=== PATIENT | female | born 1985 | race Two or more races ===

== ENCOUNTER 2022-08-09 16:07 | Emergency (ER) | payer BC, SELFPAY ==
[2022-08-09 16:24] VITALS: BP 121/64; PULSE 127; RESP 18; TEMP 37.6; O2SAT 96; BMI 27.4
--- NOTE | 2022-08-09 16:47 | CRLHL7_ITS ---
For Patients: As a result of the Cures Act, medical imaging exams and procedure reports are released immediately into your electronic medical record. You may view this report before your referring provider. If you have questions, please contact your health care provider. RIGHT BREAST ULTRASOUND, 08/09/2022 CLINICAL HISTORY: RIGHT breast swelling. COMPARISON: None. TECHNIQUE: Real-time ultrasound imaging of RIGHT breast with imaging documentation. FINDINGS: Targeted sonogram to the periareolar RIGHT breast performed. Diffusely heterogeneous breast tissue noted with hypervascularity. [place] hypoechoic fluid collection is present within a distended duct. Indeterminate area of dense tissue just beneath the nipple. Other dilated ducts are present elsewhere. IMPRESSION: Diffuse cellulitis in the periareolar RIGHT breast with dilated ducts including a distended duct containing hypoechoic fluid measuring up to 8 mm. RECOMMENDATIONS: Clinical follow-up with antibiotic therapy. Diagnostic BILATERAL mammograms. BI-RADS Category 0: Incomplete: Need Additional Imaging Evaluation and/or Prior Mammograms for Comparison [facility] will contact the patient for follow-up. Dictated by Juan Rivera MD @ 08/10/2022 8:52:20 AM JR/Dictated by: Juan Rivera MD @ 08/10/2022 8:52:00 AM (Electronically Signed)
--- NOTE | 2022-08-09 16:48 | ED_ITS ---
HPI - General Adult General Chief complaint: Breast Symptoms Stated complaint: Chest Pain Time Seen by Provider: 08/09/22 16:43 History of Present Illness HPI narrative: Pt is a 37 year old woman with a history of pre-diabetes who presents with 2 days of pain and redness in her right breast. She is not to her knowledge and has had no breast issues in the past. Pt states that she may have had some low grade fevers and chills but no nausea, vomiting. No chest pain, SOB or cough. Pain is moderate and localized to the right breast. She is not breast feeding. Related Data Home Medications Medication Instructions Recorded Confirmed No Known Home Medications 08/09/22 08/09/22 Allergies Allergy/AdvReac Type Severity Reaction Status Date / Time No Known Drug Allergies Allergy Verified 08/09/22 16:28 Review of Systems Status of ROS: Reports: 10 or more systems reviewed and unremarkable except as noted in History and below [facility] Medical History (Updated 08/09/22 @ 21:03 by Nickolas Haskins MD) No significant past medical history Prediabetes Surgical History (Updated 08/09/22 @ 19:45 by Kayleen Chapa RN) No significant past surgical history Social History Smoking Status: Never smoker Do you use any of these nicotine containing products: None Second hand tobacco smoke exposure: No How often do you have a drink containing alcohol: never AUDIT-C Alcohol total score: 0 Non-prescribed substance use: denies use Exam Narrative: Exam Narrative: EXAM GENERAL: Patient appears comfortable and well. EYES: No scleral icterus. ENT: Tympanic membranes and oropharynx normal. THYROID: no thyroid nodules or thyromegaly. LYMPH: No supraclavicular or cervical lymphadenopathy. SKIN: Visible skin seen during exam normal or with benign process only. EXT: No dependent lower extremity pedal edema. HEART: Regular rate and rhythm with no murmurs, rubs, or gallops. LUNGS: Tachycardia noted Breast Exam on R shows diffuse redness with induration subareolar with extension superiorly ABD: Soft, non tender, non distended. PSYCH: Good eye contact, speech is not pressured. Const: Vital Signs, click to edit/add: Vital Signs - 24 hr 08/09/22 16:24 08/09/22 19:43 Temperature 99.7 F H 99.3 F Pulse Rate [Right Pulse Oximeter] 127 H 105 H Respiratory Rate 18 16 Blood Pressure [Ri ght Upper Arm] 121/64 112/73 Pulse Oximetry 96 98 Oxygen Delivery Me thod Room Air Course Course Hospital Course: Pt seen. Ultrasound of R breast ordered as is CBC, BC times 2, CRP, Lactate and serum Reevaluation(s) Reevaluation #1: Pt status unchanged. Pt pulse elevated at 127. NS given. 1000 mg tylenol given. Initial dose of Ancef given. Case reviewed with general surgery as there may be a mass deep to the aereola. No abscess. Surgeon recommends outpt Keflex per Uptodate and follow up with repeat ultrasound plus mammogram. Time: 19:10 Reevaluation #2: Results given via [place] interpretor Time: 19:23 Reevaluation #3: Pt pulse has come down after normal saline. I did consider sepsis as an eitiology of tachycardia. 1 gram Anef given. Lactate reassuring at 0.9. I did recommend admission to observation which pt declined. She would like to be treated with oral antibiotics and sent home. Time: 20:55 Consultations Consultation #1: General Surgery Vital Signs Vital signs: Initial Vital Signs Temperature 99.7 F H 08/09/22 16:24 Temperature Source Temporal Artery Scan 08/09/22 16:24 Pulse Rate 127 H 08/09/22 16:24 Respiratory Rate 18 08/09/22 16:24 Blood Pressure 121/64 08/09/22 16:24 Blood Pressure Mean 83 08/09/22 16:24 Blood Pressure Position Sitting 08/09/22 16:24 Pulse Oximetry 96 08/09/22 16:24 Oxygen Delivery Method 08/09/22 16:24 Vital Signs Temperature 99.7 F H 08/09/22 16:24 Pulse Rate 127 H 08/09/22 16:24 Respiratory Rate 18 08/09/22 16:24 Blood Pressure 121/64 08/09/22 16:24 Pulse Oximetry 96 08/09/22 16:24 Oxygen Delivery Method 08/09/22 16:24 Temperature 99.3 F 08/09/22 19:43 Pulse Rate 105 H 08/09/22 19:43 Respiratory Rate 16 08/09/22 19:43 Blood Pressure 112/73 08/09/22 19:43 Pulse Oximetry 98 08/09/22 19:43 Oxygen Delivery Method 08/09/22 16:24 Medical Decision Making MDM Narrative Medical decision making narrative: Pt presents with low grade fever and mild tachycardia allong with a red swollen right breast. WBC 11.42. CRP8.7 Lactate 0.9. Ultrasound of the right breast shows dilated ducts. Tech notes questionable papiloma. Pt treated with Tylenol, NS and IV Ancef. Pt declines admission. Case discussed with general surgery who recommend follow up with repeat US and Mammogram. Pt started on Keflex and asked to hydrate at home and rotate Tylenol and Motrin. Erythema of R breast circled in ink. She will follow up with General Surgery as well as ED if symptoms worsen. Differential Diagnosis Differential Diagnosis: Cellulitis, Breast Ca, Mastitis. Paget's, Dermatitis. Lab Data Labs: Lab Results 08/09/22 08/09/22 08/09/22 Range/Units 17:40 17:40 17:40 WBC 11.42 H (4.50-11.00) K/uL RBC 4.17 (4.00-5.20) m/uL Hgb 12.7 (12.0-16.0) gm/dL Hct 37.3 (33.0-51.0) % MCV 89 (80-100) fL MCH 31 (26-34) pg MCHC 34 (32-36) gm/dL RDW Coeff of Juanis 12.6 (11.5-15.5) % Plt Count 214 (140-440) K/uL Neut % (Auto) 87.8 H (42.0-72.0) % Lymph % (Auto) 6.0 L (20-44) % [place] % (Auto) 5.8 (0.0-11.0) % Eos % (Auto) 0.0 (0.0-7.0) % Baso % (Auto) 0.1 (0.0-3.0) % Neut # (Auto) 10.00 H (1.7-7.0) K/uL Lymph # (Auto) 0.70 L (0.90-2.90) K/uL [place] # (Auto) 0.70 (0.00-0.90) K/UL Eos # (Auto) 0.00 (0.00-0.50) K/uL Baso # (Auto) 0.00 (0.00-0.30) K/uL Abs Immat Gran (auto) 0.03 (0.00-0.30) K/uL Sodium 138 (135-149) mmol/L Potassium 3.9 (3.6-5.1) mmol/L Chloride 102 (96-114) mmol/L Carbon Dioxide 26 (20-32) mmol/L BUN 11 (5-24) mg/dL Creatinine 0.7 (0.5-1.5) mg/dL Estimated Creat Clear 85.34 Estimated GFR 113 ml/min Glucose 135 H (60-115) mg/dL Lactate (0.5-1.9) mmol/L Calcium 8.8 (8.4-10.6) mg/dL C-Reactive Protein 8.7 H (0.5-1.0) mg/dL HCG, Qual Negative (Negative) 08/09/22 Range/Units 19:30 WBC (4.50-11.00) K/uL RBC (4.00-5.20) m/uL Hgb (12.0-16.0) gm/dL Hct (33.0-51.0) % MCV (80-100) fL MCH (26-34) pg MCHC (32-36) gm/dL RDW Coeff of Juanis (11.5-15.5) % Plt Count (140-440) K/uL Neut % (Auto) (42.0-72.0) % Lymph % (Auto) (20-44) % [place] % (Auto) (0.0-11.0) % Eos % (Auto) (0.0-7.0) % Baso % (Auto) (0.0-3.0) % Neut # (Auto) (1.7-7.0) K/uL Lymph # (Auto) (0.90-2.90) K/uL [place] # (Auto) (0.00-0.90) K/UL Eos # (Auto) (0.00-0.50) K/uL Baso # (Auto) (0.00-0.30) K/uL Abs Immat Gran (auto) (0.00-0.30) K/uL Sodium (135-149) mmol/L Potassium (3.6-5.1) mmol/L Chloride (96-114) mmol/L Carbon Dioxide (20-32) mmol/L BUN (5-24) mg/dL Creatinine (0.5-1.5) mg/dL Estimated Creat Clear Estimated GFR ml/min Glucose (60-115) mg/dL Lactate 0.9 (0.5-1.9) mmol/L Calcium (8.4-10.6) mg/dL C-Reactive Protein (0.5-1.0) mg/dL HCG, Qual (Negative) Discharge Plan Discharge Clinical Impression: Cellulitis of breast Patient Disposition: Home, Self-Care Condition: Stable Instructions: Mastitis (ED) Additional Instructions: Antibiotics as prescribed Tylenol Motrin Fluids Follow up with Dr Beba Farooq in one week Return if symptoms worsen. Activity Level: No Restrictions Discharge Diet: Regular Prescriptions: No Action No Known Home Medications Stand Alone Forms: MyHealth Info Instructions
[2022-08-09 18:10] LABS: Basophils Percent Auto 0.1 % (0.0-3.0); Hematocrit 37.3 % (33.0-51.0); Hemoglobin* 12.7 gm/dL (12.0-16.0); Immature Granulocytes Abs Auto 0.03 K/uL (0.00-0.30); Mean Corpuscular HGB Conc 34 gm/dL (32-36); Mean Corpuscular Hemoglobin 31 pg (26-34); Mean Corpuscular Volume 89 fL (80-100); Monocytes Percent Auto 5.8 % (0.0-11.0); Neutrophils Percent Auto 87.8 % (42.0-72.0); Platelet Count* 214 K/uL (140-440); RDW Coefficient of Variation % 12.6 % (11.5-15.5); Red Blood Count 4.17 m/uL (4.00-5.20); White Blood Count* 11.42 K/uL (4.50-11.00)
[2022-08-09 18:15] LABS: Slide Review Reflex No
[2022-08-09 18:26] LABS: Chloride* 102 mmol/L (96-114); Potassium* 3.9 mmol/L (3.6-5.1); Sodium* 138 mmol/L (135-149)
[2022-08-09 18:29] LABS: Blood Urea Nitrogen* 11 mg/dL (5-24); Carbon Dioxide* 26 mmol/L (20-32); Creatinine* 0.7 mg/dL (0.5-1.5); Est. Creatinine Clearance* 85.34; Estimated Glomerular Filt Rate 113 ml/min; Glucose* 135 mg/dL (60-115)
[2022-08-09 18:30] LABS: Calcium* 8.8 mg/dL (8.4-10.6)
[2022-08-09 18:32] LABS: C Reactive Protein* 8.7 mg/dL (0.5-1.0)
[2022-08-09 18:45] LABS: HCG Qualitative Serum* Negative (Negative)
[2022-08-09] MEDS: 0.9 % SODIUM CHLORIDE 1000 ml 1,000 ML IV (19:10)
[2022-08-09 19:43] VITALS: BP 112/73; PULSE 105; RESP 16; TEMP 37.4; O2SAT 98
[2022-08-09 19:45] LABS: Lactate* 0.9 mmol/L (0.5-1.9)
[2022-08-09] MEDS: ACETAMINOPHEN 500 MG TABLET 1000 MG PO (19:55)
[2022-08-09] MEDS: CEFAZOLIN 2 GM in 0.9 % SODIUM CHLORIDE Mini-bag 100 ML IVPB (21:18)
== END 2022-08-09 22:11 | disposition home or self-care (01) ==
PROVIDERS: Emergency Provider Internal Medicine
DX: N61.0 Mastitis without abscess (principal)
CPT/HCPCS: 36415; 76642; 80048; 83605; 84703; 85025; 86140; 87040; 96361; 96374; 99283; 99284; A9270; J0690; J7030

== ENCOUNTER 2022-08-17 09:42 | Outpatient (CLI) | payer BC, SELFPAY ==
--- NOTE | 2022-08-17 09:45 | CRLHL7_ITS ---
For Patients: As a result of the Cures Act, medical imaging exams and procedure reports are released immediately into your electronic medical record. You may view this report before your referring provider. If you have questions, please contact your health care provider. DIGITAL DIAGNOSTIC BILATERAL MAMMOGRAM USING TOMOSYNTHESIS AND COMPUTER-AIDED DETECTION RIGHT BREAST ULTRASOUND CLINICAL HISTORY: RIGHT breast lump. COMPARISON: RIGHT breast ultrasound 08/09/2022. TECHNIQUE: Digital BILATERAL mammogram in four projections. Tomosynthesis and CAD utilized. Real-time ultrasound imaging of RIGHT breast with imaging documentation. BREAST COMPOSITION: The breasts are heterogeneously dense, which may obscure small masses. FINDINGS: 3D CC/MLO mammogram submitted bilaterally. RIGHT periareolar skin thickening noted with dense tissue beneath the RIGHT nipple. Benign calcifications are noted bilaterally. Enlarged RIGHT axillary lymph node is present. Normal left breast mammogram. Targeted RIGHT breast ultrasound performed in the retroareolar region. In this location there is a complex area of decreased echogenicity measuring 2.0 x 1.5 x 2.8 cm just beneath the skin. Increased vascularity is present. There is a prominent RIGHT axillary lymph node with thickened hypoechoic cortex measuring 1.5 x 0.9 x 1.2 cm. IMPRESSION: Suspicious area of abnormal tissue/fluid beneath the RIGHT nipple with associated enlarged RIGHT axillary lymph node. Differential diagnosis includes abscess with reactive lymph node versus malignancy. RECOMMENDATIONS: Ultrasound-guided core needle biopsy/aspiration of the abnormal breast area and biopsy of the RIGHT axillary lymph node. Results and recommendations discussed with the patient through an floor tiling professional. BI-RADS Category 4: Suspicious A lay language report of this examination will be provided to the patient. Dictated by Juan Rivera MD @ 08/17/2022 12:26:06 PM robb/Dictated by: Juan Rivera MD @ 08/17/2022 12:26:00 PM (Electronically Signed)
--- NOTE | 2022-08-17 10:15 | CRLHL7_ITS ---
For Patients: As a result of the Cures Act, medical imaging exams and procedure reports are released immediately into your electronic medical record. You may view this report before your referring provider. If you have questions, please contact your health care provider. PLEASE SEE DIGITAL DIAGNOSTIC RIGHT BREAST MAMMOGRAM PERFORMED SAME DAY CRL:[email or web address] [email or web address]/Dictated by: Juan Rivera MD @ 08/17/2022 12:26:00 PM (Electronically Signed)
== END 2022-08-17 09:43 | disposition home or self-care (01) ==
PROVIDERS: Visit Provider Surgery
DX: N63.10 Unspecified lump in the right breast, unspecified quadrant (principal)
CPT/HCPCS: 76642; 77066; G0279

== ENCOUNTER 2022-08-24 08:53 | Outpatient (CLI) | payer BC, SELFPAY ==
--- NOTE | 2022-08-24 | CRLHL7_ITS ---
For Patients: As a result of the Century Cures Act, medical imaging exams and procedure reports are released immediately into your electronic medical record. You may view this report before your referring provider. If you have questions, please contact your health care provider. ULTRASOUND-GUIDED BREAST ASPIRATION AND BIOPSY AND POST-BIOPSY DIGITAL MAMMOGRAM FOR BIOPSY MARKER PLACEMENT CLINICAL HISTORY: HISTORY OF MASTITIS WITH POSSIBLE ABSCESS. MINIMAL IMPROVEMENT WITH ANTIBIOTICS. RULE OUT UNDERLYING MALIGNANCY OR ABSCESS. COMPARISON STUDIES: 08/09/2022, 08/17/2022 TECHNIQUE: Real-time ultrasound with image documentation was used for targeting the breast lesion. Ultrasound-guided aspiration attempted. Core biopsy specimens were obtained using an automated gun with a 18-gauge biopsy needle. Post-biopsy CC and ML digital mammograms were obtained to document position of the biopsy marker. CONSENT and TIME OUT: The procedure, risks, and alternatives were explained to the patient and a consent was signed. [place] Protocol was followed including pre-procedure verification that relevant information/documentation was available, reviewed and properly matched to the patient; consent accurate and complete; and equipment and supplies available. Time Out was conducted just prior to starting procedure to verify the four required elements: patient identity, correct side/site marked (if applicable), procedure, relevant images/results properly labeled and displayed (if applicable). PROCEDURE: The patient was positioned supine on the ultrasound table. The breast was prepped with ChloraPrep. 8 cc 1 percent lidocaine used for local anesthesia. An 18 gauge needle was placed into the area and aspiration attempted. Less than 0.5 cc bloody fluid aspirated and sent to the lab for Gram stain and culture. Core samples were then obtained. A sterile metal biopsy clip was placed percutaneously to rosenda the lesion position within the breast. The specimens were placed in 10% formalin and sent to the pathology department. Pressure was held on the biopsy site until all bleeding subsided. The skin incision was closed with Steri-Strips. An ice pack was positioned over the biopsy site. Post-biopsy instructions were reviewed with the patient, and a written copy was given to her. LATERALITY: RIGHT. LESION: Geographic masslike area of hypoechoic tissue beneath the RIGHT nipple measuring 2.8 cm. SUSPICION FOR MALIGNANCY: Medium. NUMBER OF SAMPLES: 5. BIOPSY CLIP SHAPE: Ribbon. PROXIMITY OF CLIP TO TARGET: Within the lesion. IMPRESSION: Ultrasound-guided breast aspiration/biopsy. When the pathology report is available, an addendum to this report will be made. ACR not applicable Dictated by Juan Rivera MD @ 08/24/2022 10:36:12 AM jj/Dictated by: Juan Rivera MD @ 08/24/2022 10:36:00 AM (Electronically Signed)
--- NOTE | 2022-08-24 09:15 | CRLHL7_ITS ---
For Patients: As a result of the Century Cures Act, medical imaging exams and procedure reports are released immediately into your electronic medical record. You may view this report before your referring provider. If you have questions, please contact your health care provider. ULTRASOUND-GUIDED AXILLARY LYMPH NODE AND POST-BIOPSY DIGITAL MAMMOGRAM FOR BIOPSY MARKER PLACEMENT CLINICAL HISTORY: Enlarged RIGHT axillary lymph node in the setting of infection. Rule out malignancy. COMPARISON STUDIES: 08/09/2022, 08/17/2022. TECHNIQUE: Real-time ultrasound with image documentation was used for targeting the RIGHT axillary lymph node lesion. Core biopsy specimens were obtained using an automated gun with a 14-gauge biopsy needle. Post-biopsy CC and ML digital mammograms were obtained to document position of the biopsy marker. CONSENT and TIME OUT: The procedure, risks, and alternatives were explained to the patient and a consent was signed. [place] Protocol was followed including pre-procedure verification that relevant information/documentation was available, reviewed and properly matched to the patient; consent accurate and complete; and equipment and supplies available. Time Out was conducted just prior to starting procedure to verify the four required elements: patient identity, correct side/site marked (if applicable), procedure, relevant images/results properly labeled and displayed (if applicable). PROCEDURE: The patient was positioned supine on the ultrasound table. The right axilla was prepped with ChloraPrep. 8 cc 1 percent lidocaine used for local anesthesia. Core samples were obtained. A sterile metal biopsy clip was placed percutaneously to rosenda the lesion position within the right axilla. The specimens were placed in 10% formalin and sent to the pathology department. Pressure was held on the biopsy site until all bleeding subsided. The skin incision was closed with Steri-Strips. An ice pack was positioned over the biopsy site. Post-biopsy instructions were reviewed with the patient, and a written copy was given to her. LATERALITY: RIGHT axilla. LESION: Enlarged RIGHT axillary lymph node with thickened hypoechoic cortex measuring 1.5 x 0.9 x 1.2 cm. SUSPICION FOR MALIGNANCY: Medium. NUMBER OF SAMPLES: 5. BIOPSY CLIP SHAPE: Coil. PROXIMITY OF CLIP TO TARGET: Within the lesion. IMPRESSION: Ultrasound-guided RIGHT axillary lymph node biopsy. When the pathology report is available, an addendum to this report will be made. ACR not applicable Dictated by Juan Rivera MD @ 08/24/2022 11:13:41 AM jj/Dictated by: Juan Rivera MD @ 08/24/2022 11:13:00 AM ----- ADDENDUM ----- IMPRESSION: Pathology consistent with fragments of benign lymph node without evidence of metastatic carcinoma. This is concordant. Clinical follow-up recommended. Dictated by Juan Rivera MD @ Aug 24 2022 11:13AM Signed by:?Juan Rivera MD @08/24/2022 3:44:10 PM (Electronically Signed)
--- NOTE | 2022-08-24 09:15 | CRLHL7_ITS ---
For Patients: As a result of the Century Cures Act, medical imaging exams and procedure reports are released immediately into your electronic medical record. You may view this report before your referring provider. If you have questions, please contact your health care provider. ULTRASOUND-GUIDED BREAST ASPIRATION AND BIOPSY AND POST-BIOPSY DIGITAL MAMMOGRAM FOR BIOPSY MARKER PLACEMENT CLINICAL HISTORY: HISTORY OF MASTITIS WITH POSSIBLE ABSCESS. MINIMAL IMPROVEMENT WITH ANTIBIOTICS. RULE OUT UNDERLYING MALIGNANCY OR ABSCESS. COMPARISON STUDIES: 08/09/2022, 08/17/2022 TECHNIQUE: Real-time ultrasound with image documentation was used for targeting the breast lesion. Ultrasound-guided aspiration attempted. Core biopsy specimens were obtained using an automated gun with a 18-gauge biopsy needle. Post-biopsy CC and ML digital mammograms were obtained to document position of the biopsy marker. CONSENT and TIME OUT: The procedure, risks, and alternatives were explained to the patient and a consent was signed. [place] Protocol was followed including pre-procedure verification that relevant information/documentation was available, reviewed and properly matched to the patient; consent accurate and complete; and equipment and supplies available. Time Out was conducted just prior to starting procedure to verify the four required elements: patient identity, correct side/site marked (if applicable), procedure, relevant images/results properly labeled and displayed (if applicable). PROCEDURE: The patient was positioned supine on the ultrasound table. The breast was prepped with ChloraPrep. 8 cc 1 percent lidocaine used for local anesthesia. An 18 gauge needle was placed into the area and aspiration attempted. Less than 0.5 cc bloody fluid aspirated and sent to the lab for Gram stain and culture. Core samples were then obtained. A sterile metal biopsy clip was placed percutaneously to rosenda the lesion position within the breast. The specimens were placed in 10% formalin and sent to the pathology department. Pressure was held on the biopsy site until all bleeding subsided. The skin incision was closed with Steri-Strips. An ice pack was positioned over the biopsy site. Post-biopsy instructions were reviewed with the patient, and a written copy was given to her. LATERALITY: Right LESION: Geographic masslike area of hypoechoic tissue beneath the right nipple measuring 2.8 cm. SUSPICION FOR MALIGNANCY: Medium NUMBER OF SAMPLES: 5 BIOPSY CLIP SHAPE: Ribbon PROXIMITY OF CLIP TO TARGET: Within the lesion IMPRESSION: Ultrasound-guided breast aspiration/biopsy. When the pathology report is available, an addendum to this report will be made. ACR not applicable Dictated by Juan Rivera MD @ 08/24/2022 11:19:10 AM ----- ADDENDUM ----- IMPRESSION: Pathology consistent with benign fibrosis and mixed acute/chronic inflammation. No evidence of atypia or malignancy. This is concordant. Clinical follow-up recommended. Dictated by Juan Rivera MD @ Aug 24 2022 11:19AM Signed by:?Juan Rivera MD @08/25/2022 8:48:39 AM (Electronically Signed)
--- NOTE | 2022-08-24 09:45 | CRLHL7_ITS ---
For Patients: As a result of the Cures Act, medical imaging exams and procedure reports are released immediately into your electronic medical record. You may view this report before your referring provider. If you have questions, please contact your health care provider. PLEASE SEE RIGHT BREAST AND RIGHT AXILLARY LYMPH NODE BIOPSY PERFORMED SAME DAY CRL:robb [email or web address]/Dictated by: Juan Rivera MD @ 08/24/2022 10:36:00 AM (Electronically Signed)
== END 2022-08-24 08:54 | disposition home or self-care (01) ==
LOC: US 08:53
PROVIDERS: Visit Provider Surgery
DX: N60.31 Fibrosclerosis of right breast (principal); R92.8 Other abnormal and inconclusive findings on diagnostic imaging of breast; N63.41 Unspecified lump in right breast, subareolar
CPT/HCPCS: 19000; 19083; 38505; 76942; 77065; 87070; 87205; 88305; A4648; A4649

== ENCOUNTER 2022-09-27 07:16 | Day surgery (SDC) | payer BC, SELFPAY ==
[2022-09-27 07:22] VITALS: BP 122/84; PULSE 57; RESP 16; TEMP 36.4; O2SAT 96; BMI 32.3
--- NOTE | 2022-09-27 07:40 | SUR.PREOP ---
VERIFIED NEGATIVE HOME COVID test upon arrival
[2022-09-27] MEDS: SODIUM CHLORIDE 0.9 % (FLUSH) 10 ML SYRINGE IVF (07:43)
[2022-09-27] MEDS: LACTATED RINGERS 1000 ML 1,000 ML 100 ML IV (07:43)
[2022-09-27 07:59] LABS: HCG Qualitative* Negative (Negative)
--- NOTE | 2022-09-27 09:44 | CRLHL7_ITS ---
For Patients: As a result of the Cures Act, medical imaging exams and procedure reports are released immediately into your electronic medical record. You may view this report before your referring provider. If you have questions, please contact your health care provider. RIGHT BREAST SPECIMEN RADIOGRAPH CLINICAL HISTORY: RIGHT breast excisional biopsy. COMPARISON: Same day. FINDINGS: Specimen contains the localization wire along with four biopsy clips. IMPRESSION: Specimen contains the localization wire and four biopsy clips. Results were immediately verbally reported to the operating surgeon by the radiologist. ACR not applicable Dictated by Juan Rivera MD @ 09/27/2022 11:46:16 AM jj/Dictated by: Juan Rivera MD @ 09/27/2022 11:46:00 AM (Electronically Signed)
[2022-09-27] MEDS: CEFAZOLIN 1 GM inj IVP (10:10)
[2022-09-27] MEDS: BUPIVACAINE 0.25% 30 ML 11 ML INJECTION (10:42)
[2022-09-27] MEDS: LIDOCAINE 1% MDV 11 ML INJECTION (10:42)
--- NOTE | 2022-09-27 11:13 | PM.GSPRC ---
Operative Note Date of procedure: 09/27/22 Type of Procedure: Excisional biopsy right breast subareolar ductal tissue with preoperative wire localization Procedure Description: After discussing the risks and benefits of the procedure, the patient signed informed consent.? The operative site was marked and the patient was brought to the operating room and placed on the operating table in supine position.? Care was taken to pad the patient's pressure points.?? The patient was then given sedation] by anesthesia.?? The operative site was then prepped and draped in the usual sterile fashion.? A time-out was then performed. The patient is most recent biopsy area was localized by the radiologist preoperatively. This was inferior to the breast. After injecting local anesthetic, I made a curvilinear incision at the areolar border and took dissection down to the subcutaneous tissue. I 1st took my dissection inferiorly towards the wire. This was encountered and pulled through the incision. I then began to follow the wire superiorly. The wire was noted to be quite superficial. This was just under the dermis. I took my dissection between the breast tissue and the dermis posterior to the nipple-areolar complex. There were very large dilated ducts containing green and yellow material. This tissue was excised. I removed all of the ducts under the nipple areolar complex. I did encounter a biopsy clip during this dissection. I placed a stitch around it to ensure that it would be not be knocked out of place during the remainder of the surgery. Once I reached the tip of the wire superiorly, I then began my dissection using cautery heading posteriorly as well as medially and laterally. The majority of the tissue behind the nipple was removed and again I encountered multiple large dilated ducts in this dissection. These were removed. I did not take my dissection all the way back to fascia. Once the mass was completely excised, I marked it with ink and sent for x-ray. The x-ray noted that the specimen contained the wire and 4 of her biopsy clips. This was then sent to pathology for permanent section. The wound bed was examined. Hemostasis was achieved with cautery. The wound was then copiously irrigated. I undermined some of the tissue inferiorly to minimize the space caused by the subareolar excision. I then everted the nipple with 3-0 Vicryl suture posteriorly. The skin was then closed with 3 0 Vicryl dermal and 4 0 Monocryl running subcuticular suture. ? Sterile dressings were then applied. ? The patient was then woken and transported to the recovery area in stable condition. ? The patient tolerated the procedure well. Findings: Multiple dilated ducts posterior to the nipple areolar complex. For clips noted in biopsy specimen Anesthesia: MAC Surgeon: Beba Farooq MD Estimated blood loss (mL): 15 Condition: stable Disposition: same day
[2022-09-27 11:20] VITALS: BP 101/76; PULSE 66; RESP 16; TEMP 36.1; O2SAT 97
--- NOTE | 2022-09-27 11:22 | W.ANESCHARGE ---
Anesthesia Charges Start Date/Time Anesthesia Start Date: 09/27/22 Anesthesia Start Time: 09:58 Stop Date/Time Anesthesia Stop Date: 09/27/22 Anesthesia Stop Time: 11:20 Summary Emergency: No
[2022-09-27] MEDS: LACTATED RINGERS 1000 ML 1,000 ML 75 ML IV (11:30)
[2022-09-27 11:35] VITALS: BP 109/69; PULSE 86; RESP 16; O2SAT 93
[2022-09-27 11:50] VITALS: BP 121/81; PULSE 70; RESP 16; TEMP 36.5; O2SAT 97
--- NOTE | 2022-09-27 11:56 | W.ANESCHARGE ---
Anesthesia Charges Start Date/Time Anesthesia Start Date: 09/27/22 Anesthesia Start Time: 09:58 Stop Date/Time Anesthesia Stop Date: 09/27/22 Anesthesia Stop Time: 11:20 Summary Emergency: No
[2022-09-27 12:05] VITALS: BP 116/77; PULSE 77; RESP 16; O2SAT 100
== END 2022-09-27 12:20 | disposition home or self-care (01) ==
PROVIDERS: Nurse Anesthetist, Certified Registered; Visit Provider Surgery
PROC: (CPT 19125; principal; 2022-09-27 09:15)
DX: D24.1 Benign neoplasm of right breast (principal)
CPT/HCPCS: 19125; 00400; 84703; 88307; 88312; J0690; J1885; J2250; J2405; J2704; J3010; J3490; J7120

== ENCOUNTER 2022-09-27 08:17 | Outpatient (CLI) | payer BC, SELFPAY ==
--- NOTE | 2022-09-27 08:15 | CRLHL7_ITS ---
For Patients: As a result of the Cures Act, medical imaging exams and procedure reports are released immediately into your electronic medical record. You may view this report before your referring provider. If you have questions, please contact your health care provider. BREAST WIRE LOCALIZATION USING ULTRASOUND GUIDANCE CLINICAL HISTORY: Chronic inflammation/granulomatous mastitis right breast. LATERALITY: RIGHT breast. LESION: Persistent hypoechoic masslike area beneath the RIGHT nipple at 12 o`clock. LOCALIZATION WIRE: [place] hookwire. TECHNIQUE: The localization wire was placed using real-time ultrasound guidance with image documentation. Cranial-caudal and medial-lateral digital mammograms were obtained after localization wire placement. CONSENT and TIME OUT: The procedure, risks, and alternatives were explained to the patient and a consent was signed. [place] Protocol was followed including pre-procedure verification that relevant information/documentation was available, reviewed and properly matched to the patient; consent accurate and complete; and equipment and supplies available. Time Out was conducted just prior to starting procedure to verify the four required elements: patient identity, correct side/site marked (if applicable), procedure, relevant images/results properly labeled and displayed (if applicable). PROCEDURE: The skin was prepped with ChloraPrep and 8 cc of 1% lidocaine was injected for local anesthesia. The localization wire was placed within or near the targeted breast lesion using ultrasound guidance. The patient tolerated the procedure well. PROXIMITY OF WIRE TO LESION: The wire is within the lesion adjacent to the clip. IMPRESSION: Successful breast wire localization. ACR not applicable Dictated by Juan Rivera MD @ 09/27/2022 9:23:18 AM jj/Dictated by: Juan Rivera MD @ 09/27/2022 9:23:00 AM (Electronically Signed)
--- NOTE | 2022-09-27 08:45 | CRLHL7_ITS ---
For Patients: As a result of the Cures Act, medical imaging exams and procedure reports are released immediately into your electronic medical record. You may view this report before your referring provider. If you have questions, please contact your health care provider. PLEASE SEE ULTRASOUND-GUIDED RIGHT WIRE LOCALIZATION PERFORMED SAME DAY CRL:robb zamudio/Dictated by: Juan Rivera MD @ 09/27/2022 9:23:00 AM (Electronically Signed)
== END 2022-09-27 08:18 | disposition home or self-care (01) ==
LOC: US 08:17
PROVIDERS: Visit Provider Surgery
DX: N63.10 Unspecified lump in the right breast, unspecified quadrant (principal); D24.1 Benign neoplasm of right breast
CPT/HCPCS: 19285; 77065; C1769

== ENCOUNTER 2024-06-16 19:30 | Day surgery (SDC) | payer MEDICAID, SELFPAY ==
[2024-06-16 19:46] VITALS: BP 131/83; PULSE 98; RESP 16; TEMP 36.8; O2SAT 96; BMI 29.9
--- NOTE | 2024-06-16 20:04 | CRLHL7_ITS ---
For Patients: As a result of the Century Cures Act, medical imaging exams and procedure reports are released immediately into your electronic medical record. You may view this report before your referring provider. If you have questions, please contact your health care provider. INDICATION: Abnormal vaginal bleeding. TECHNIQUE: Transabdominal and transvaginal ultrasound examination of the pelvis was performed. Grayscale and color Doppler images were obtained. COMPARISON: None. FINDINGS: Uterus: No intrauterine gestation. Normal in echotexture. No suspicious masses. Endometrium: No significant endometrial free fluid. Right Ovary: Measures 2.9 x 1.5 x 2.1 cm. No suspicious masses. Normal arterial and venous flow on color Doppler imaging. Left ovary: Measures 2.3 x 1.9 x 2.4 cm. There is a left adnexal ectopic gestation with mean sac diameter of 10 mm common compatible with estimated gestational age of 5 weeks and 5 days. Normal arterial and venous flow on color Doppler imaging. Cul-de-sac: No free fluid. IMPRESSION: Left adnexal ectopic . No hemoperitoneum. Dictated by Jakob Oconnor MD @ 06/16/2024 9:32:25 PM (Electronically Signed)
--- OUTSIDE RECORDS SUMMARY | 2024-06-16 20:20 | XMS_ITS | Encounter Summary ---
Author Organization [facility] Address [address] [place] [address] Care Team Providers Care Bar Useful Or Busser Name Role Phone Brynn Levine APRN, CNM Primary Care Provider + Encounter Details Date Type Department Care Team (Latest Contact Info) Description 06/13/2024 Travel Social History Tobacco Use Types Packs/Day Years Used Date Smoking Tobacco: Never Smokeless Tobacco: Never Alcohol Use Standard Drinks/Week Comments Never 0 (1 standard drink = 0.6 oz pur e alcohol) Social Connections Answer Date Recorded Social Connections and Isolation 0 04/19/2022 Financial Resource Strain Answer Date R ecorded Financial Resource Strain 0 2021 Stress Answer Date Recorded Stress 0 04/19/2022 Physical Activity Answer Date Recorded Physical Activity 0 04/19/2022 Food Insecurity Answer Date Recorded Food 0 04/19/2022 Transportation Needs Answer Date Record ed Transportation 0 04/19/2022 Housing Stability Answer Date Recorded Housing 0 04/19/2022 Safety and Environment Answer Date Zachariah rded Safety 0 04/19/2022 Utilities Answer Date Recorded Utilities 0 04/19/2022 Employment Answer Date Recorded Employment 0 04/19/2022 Comments Yes Sex and Gender Information Value Date Recorded Sex Assigned at Female 04/19/2022 1:41 PM PDT Gender Identity Female 04/19/2022 1:41 PM PDT Sexual Orientation Straight 04/19/2022 1: 41 PM PDT documented as of this encounter Plan of Treatment Upcoming Encounters Date Type Department Care Team ( st Contact Info) Description 06/26/2024 8:00 AM PDT Telemedicine Visit [facility] [address] [place] [phone] Brynn Levine APRN, CNM [address] [place] [phone] 07/03/2024 11:00 AM PDT Interim Notes [facility] [address] [place] [phone] documented as of this encounter Visit Diagnoses Not on filedocumented in this encounter Additional Health Concerns Assessment Noted Time PHQ-9 Depression Total Score: 4 06/13/20 24 1:00 PM PDT documented as of this encounter Care Teams Bar Useful Or Busser Relationship Specialty Start Date End Date Brynn Levine APRN, CNM [address] [place] [phone] PCP - General Van Loader, Certified Nurse 04/16/22 documented as of this encounter
--- OUTSIDE RECORDS SUMMARY | 2024-06-16 20:20 | XMS_ITS | Clinical Summary ---
Author Organization [facility] Address [address] [place] [address] Care Team Providers Care Loan Clerk Name Role Phone Brynn Levine APRN, CNM Primary Care Provider + Source Comments PLEASE NOTE, if this patient is a minor, it may be UNLAWFUL to discuss sensitive information that is contained in these records (such as FAMILY PLANNING, MENTAL HEALTH or SUBSTANCE ABUSE) with the minor patient's parent or other person without the patient's specific authorization.[facility] Allergies No known active allergies Medications No known medications Active Problems Problem Noted Date Diagnosed Date Breast mass 06/05/2024 Cellulitis of breast 06/05/2024 Encounter to establish care with new doctor 07/2024 Preop general physical exam 06/05/2024 Fatty infiltration of liver 06/05/2024 Prediabetes 04/30/2022 Overview: 04/2022 A1c 5.8% Comments Yes Encounters Date Type Department Care Team Description 06/15/2024 Travel 06/13/2024 1:00 PM PDT OB Initial Visit (Nurse) [facility] [address] [place] [phone] Brynn Levine APRN, CNM Miranda, [place]yl[place], RN Encounter for supervision of other normal , first trimester (Primary Dx); Vaginal bleeding affecting early 06/13/2024 Travel 06/07/2024 Travel 06/05/2024 3:00 PM PDT Office Visit [facility] [address] [place] [phone] Chastity Welch, INSPECTOR ASSEMBLY,TELEPHONE CLERK Positive urine test (Primary Dx) 06/05/2024 Travel from Last 3 Months Immunizations Name Administration Dates Next Due Flu, Preservative Free 09/22/2022 TDAP 06/17/2022 Family History Medical History Relation Name Comments Cancer Neg Diabetes Neg Heart Problems Neg Social History Tobacco Use Types Packs/Day Years [...] Orientation Straight 04/19/2022 1: 41 PM PDT Last Filed Vital Signs Vital Sign Reading Time Taken Comments Blood Pressure 125/79 06/13/2024 1:06 PM CDT Pulse 82 06/13/2024 1:06 PM CDT Temperature 36.4 ??C (97.6 ??F) 06/13/2024 1:06 PM CD T Respiratory Rate 18 06/05/2024 2:56 PM CDT Oxygen Saturation 98% 06/05/2024 2:56 PM CDT Inhaled Oxygen Concentration - - Weight 75.5 kg (166 lb 6 oz) 06/05/2024 2:56 PM CDT Height 154 cm (5' 0.63) 06/05/2024 2:56 PM CDT Body Mass Index 31.82 06/05/2024 2:56 PM CDT Plan of Treatment Upcoming Encounters Date Type Department Care Team (Late st Contact Info) Description 06/26/2024 8:00 AM PDT Telemedicine Visit [facility] [address] [place] [phone] Brynn Levine APRN,THONY [address] [phone] 07/03/2024 11:00 AM PDT Interim Notes [facility] [address] [place] [address] Health Maintenance Due Date Last Done Comments HPV Screening 1983 Imm-Hepatitis B (1 of 3 - 19+ 3-dose series) 2002 Diabetes Screening 04/19/2023 04/19/2022 [id number] ( season) 2023 Imm-Influenza (#1) 2024 09/22/2022 Lipid Screening 04/19/2025 04/19/2022 Pap Smear 04/19/2025 04/19/2022 Breast Cancer Screening (Mammogram) 05/28/2025 Postponed from 07/24 (Not appropriate at this time) Hypertension Screening (#1) 06/13/2025 Relationship Safety Screening/Counseling 06/13/2025 06/13/2024, 04/19/2022 Tobacco Screening 06/13/2025 06/13/2024 Cervical Cancer Screening 04/19/2027 Pap + HPV 04/19/2027 04/19/2022 Imm-RSV (adult) (1 - 1-dose 60+ series) 2043 HIV Screening Completed 04/19/2022 Hepatitis C Screening Completed 04/19/2022 Alcohol and Drug Screen Completed 06/13/20, 04/19/2022 Depression Annual Screen Completed 06/13/2024 Cervical Ablation/Cold-Knife Conization Discontinued Cervical Cryotherapy Discontinued Colposcopy Discontinued Endometrial Biopsy Discontinued Excision/Leep Discontinued HPV Genotyping Discontinued Vaginal Pap Discontinued Vulvoscopy Discontinued Procedures Procedure Name Priority Date/Time Associated Diagnosis Comments GONADOTROPIN CHORIONIC QUANTITATIVE Routine 06/15/2024 8:34 AM CDT Vaginal bleeding affecting early GONADOTROPIN CHORIONIC QUANTITATIVE Routine 06/13/2024 1:53 PM CDT Vaginal bleeding affecting early BLOOD COUNT COMPLETE AUTO&AUTO DIFRNTL WBC Routine 06/13/2024 1:53 PM CDT Vaginal bleeding affecting early ABO GROUP & RH TYPE Routine 06/13/2024 1 :53 PM CDT Vaginal bleeding affecting early URINE CULTURE W ID & SENS Routine 06/13/2024 1:52 PM CDT RFLX - REFLEXIVE URINE CULTURE Routine 06/13/2024 1:52 PM CDT SURESWAB, CT/NG, T VAGINALIS Routine 06/13/2024 1:52 PM CDT Vaginal bleeding affecting early URINALYSIS, COMPLETE W/REFLEX TO CULTURE Routine 06/13/2024 1:52 PM CDT Vaginal bleeding affecting early GONADOTROPIN CHORIONIC QUANTITATIVE Routine 06/07/2024 8:15 AM CDT Positive urine test ABO GROUP & RH TYPE Routine 06/05/2024 3 :34 PM CDT Positive urine test GONADOTROPIN CHORIONIC QUANTITATIVE Routine 06/05/2024 3:34 PM CDT Positive urine test BLOOD COUNT COMPLETE AUTO&AUTO DIFRNTL WBC Routine 06/05/2024 3:34 PM CDT Positive urine test URINE POCT Routine 06/05/2024 3:10 PM CDT Positive urine test HIV 1/2 AG & AB W/RFLX (4TH GEN) Routine 04/19/2022 4:37 PM CDT Screening for HIV (human immunodeficiency virus) HEPATITIS C AB W/RFLX HCV RNA, QT, RT PCR Routine 04/19/2022 4:37 PM CDT Screen for sexually transmitted diseases HEMOGLOBIN GLYCOSYLATED A1C Routine 04/19/2022 4:37 PM CDT Screening for diabetes mellitus LIPIDS W RFLX TO DIRECT LDL Routine 04/19/2022 4:37 PM CDT Screening, lipid THIN PREP IMAGE PAP + HPV RNA E6/E7 W/RFLX HPV 16, 18/45 Routine 04/19/2022 4:34 PM CDT Screening for malignant neoplasm of cervix from Last 3 Months or Most Recently Relevant to Health Maintenance Results * (ABNORMAL) GONADOTROPIN CHORIONIC QUANTITATIVE (06/15/2024 8:34 AM CDT) Only the most recent of4 resultswithin the time period is included. HCG, TOTAL, QN 8,177(H) mIU/mL [facility] [place] Comment: Reference Range Non or premenopausal ?<5 Postmenopausal ? <10 Values from different assay methods may vary. The use of this assay to monitor or to diagnose patients with cancer or any condition unrelated to has not been cleared or approved by the FDA or the limousine and hearse upholsterer of the assay. Blood Blood / Unknown 06/15/2024 8 :34 AM CDT 06/16/2024 2:52 AM CDT Brynn Levine APRN, CNM LAB - BLOOD DRAW [facility] [place] [address] [facility] [place] [address] [facility] [address] [place] [address] * ABO GROUP & RH TYPE (06/13/2024 1:53 PM CDT) Only the most recent of2 resultswithin the time period is included. ABO GROUP B [facility] [place] RH TYPE RH(D) POSITIVE [facility] [place] COMMENT [facility] [place] Blood Blood / Unknown 06/13/2024 1 :53 PM CDT 06/14/2024 3:45 AM CDT Narrative [facility] [place] - 06/14/2024 9:30 AM CDT For additional information, please refer to http://education.RegalBox.Button Brew House/faq/BNJ311 (This link is being provided for informational/ educational purposes only.) Brynn Levine APRN, CNM LAB - BLOOD DRAW [facility] [place] [address] [place] [address] [facility] [place] [address] [place] [address] * BLOOD COUNT COMPLETE AUTO&AUTO DIFRNTL WBC (06/13/2024 1:53 PM CDT) Only the most recent of2 resultswithin the time period is included. WHITE BLOOD CELL COUNT 5.8 3.8 - 10.8 Thousand/ uL [facility] [place] [place] RED BLOOD CELL COUNT 4.28 3.80 - 5.10 Million/u L [facility] [place] HEMOGLOBIN 12.6 11.7 - 15.5 g/dL [facility] [place] [place] HEMATOCRIT 39.0 35.0 - 45.0 % [facility] [place] [place] MCV 91.1 80.0 - 100.0 fL [facility] [place] [place] MCH 29.4 27.0 - 33.0 pg [facility] [place] MCHC 32.3 32.0 - 36.0 g/dL [facility] [place] RDW 13.0 11.0 - 15.0 % [facility] [place] [place] PLATELET COUNT 286 140 - 400 Thousand/ uL [facility] [place] [place] MPV 10.2 7.5 - 12.5 fL [facility] [place] ABSOLUTE NEUTROPHILS 4,309 1,500 - 7,800 cells/uL [facility] [place] ABSOLUTE LYMPHOCYTES 870 850 - 3,900 cells/uL [facility] [place] ABSOLUTE MONOCYTES 522 200 - 950 cells/uL [facility] [place] ABSOLUTE EOSINOPHILS 81 15 - 500 cells/uL [facility] ABSOLUTE BASOPHILS 17 0 - 200 cells/uL [facility] NEUTROPHILS 74.3 % [facility] [place] LYMPHOCYTES 15.0 % [facility] [place] MONOCYTES 9.0 % [facility] [place] EOSINOPHILS 1.4 % [facility] [place] BASOPHILS 0.3 % [facility] [place] ABSOLUTE BAND NEUTROPHILS CANCELED [facility] Comment:Result canceled by t he ancillary. ABSOLUTE METAMYELOCYTES CANCELED [facility] [place] Comment:Result canceled by t he ancillary. ABSOLUTE MYELOCYTES CANCELED [facility] [place] Comment:Result canceled by t he ancillary. ABSOLUTE PROMYELOCYTES CANCELED [facility] [place] Comment:Result canceled by t he ancillary. ABSOLUTE BLASTS CANCELED [facility] [place] Comment:Result canceled by t he ancillary. ABSOLUTE NUCLEATED RBC CANCELED [facility] [place] Comment:Result canceled by t he ancillary. BAND NEUTROPHILS CANCELED [facility] Comment:Result canceled by t he ancillary. METAMYELOCYTES CANCELED [facility] [place] Comment:Result canceled by t he ancillary. MYELOCYTES CANCELED [facility] [place] [place] Comment:Result canceled by t he ancillary. PROMYELOCYTES CANCELED [facility] [place] [place] Comment:Result canceled by t he ancillary. REACTIVE LYMPHOCYTES CANCELED [facility] [place] [place] Comment:Result canceled by t he ancillary. BLASTS CANCELED [facility] [place] [place] Comment:Result canceled by t he ancillary. NUCLEATED RBC CANCELED [facility] [place] [place] Comment:Result canceled by t he ancillary. COMMENT(S) CANCELED [facility] [place] [place] Comment:Result canceled by t he ancillary. Blood Blood / Unknown 06/13/2024 1 :53 PM CDT 06/14/2024 3:30 AM CDT Brynn Levine APRN, CNM LAB - BLOOD DRAW [facility] [place] [address] [facility] [address] [facility] [address] [place] [address] * SURESWAB, CT/NG, T VAGINALIS (06/13/2024 1:52 PM CDT) CHLAMYDIA TRACHOMATIS RNA, TMA NOT DETECTED NOT DETECTED [facility] NEISSERIA GONORRHOEAE RNA, TMA NOT DETECTED NOT DETECTED [facility] COMMENT [facility] SURESWAB(R) TRICHOMONAS VAGINALIS RNA, QL TMA NOT DETECTED NOT DETECTED [facility] Comment: For additional information, please refer to http://J2 Software Solutions.Socket Mobile/ faq/Trichomonastma (This link is being provided for informational/ educational purposes only.) Swab Vaginal structure / Unknown 06/13/2024 1:52 PM CDT 06/14/2024 10:47 AM CDT Narrative [facility] - 06/15/2024 12:21 PM CDT The analytical performance characteristics of this assay, when used to test SurePath(TM) specimens have been determined by [facility]. The modifications have not been cleared or approved by the FDA. This assay has been validated pursuant to the CLIA regulations and is used for clinical purposes. For additional information, please refer to https://J2 Software Solutions.Socket Mobile/faq/BPN322 (This link is being provided for information/ educational purposes only.) Brynn Levine APRN, CNM LAB - NO BLOOD D RAW [facility] [address] [place] [address] [facility] [address] [place] [address] * URINE CULTURE W ID & SENS (06/13/2024 1:52 PM CDT) CULTURE, URINE, ROUTINE See Note [facility] Comment: ??CULTURE, URINE, ROUTINE ?Micro Number: ?[id number] ??Test Status: ? Final ??Specimen Source: ?? Urine ??Specimen Quality: ??Adequate ??Result: ?Mixed genital sarah isolated. These superficial ? bacteria are not indicative of a urinary tract ? infection. No further organism identification is ? warranted on this specimen. If clinically ? indicated, recollect clean-catch, mid-stream ? urine and transfer immediately to Urine Culture ? Transport Tube. SOURCE URINE [facility] [place] STATUS FINAL [facility] RESULT Mixed genital sarah isolated. These superficial bacteria are not indicative of a urinary tract infection. No further organism identification is warranted on this specimen. If clinically indicated, recollect clean-catch, mid-stream urine and transfer immediately to Urine Culture Transport Tube. [facility] ISOLATE 1 DNR [facility] [place] ISOLATE 2 DNR [facility] [place] ISOLATE 3 DNR [facility] [place] [place] ISOLATE 4 DNR [facility] [place] [place] ISOLATE 5 DNR [facility] [place] COMMENT DNR [facility] [place] 06/13/2024 1:52 PM CDT 06/13/2024 1:53 PM CDT Brynn Levine APRN, CNM LAB - NO BLOOD D RAW Performing Organization Address City/State/[facility] Co de Phone Number [facility] [place] [address] [place] [address] [facility] [address] [place] [address] * (ABNORMAL) URINALYSIS, COMPLETE W/REFLEX TO CULTURE (06/13/2024 1:52 PM CDT) COLOR YELLOW YELLOW [facility] [place] APPEARANCE CLOUDY(A) CLEAR [facility] [place] SPECIFIC GRAVITY 1.016 1.001 - 1.035 [facility] PH 6.5 5.0 - 8.0 [facility] [place] GLUCOSE NEGATIVE NEGATIVE [facility] BILIRUBIN NEGATIVE NEGATIVE [facility] KETONES NEGATIVE NEGATIVE [facility] [place] OCCULT BLOOD 3+(A) NEGATIVE [facility] [place] PROTEIN TRACE(A) NEGATIVE [facility] [place] NITRITE NEGATIVE NEGATIVE [facility] [place] LEUKOCYTE ESTERASE 2+(A) NEGATIVE [facility] [place] [place] WBC 6-10(A) 0 - 5 /HPF [facility] [place] RBC 3-10(A) 0 - 2 /HPF [facility] [place] SQUAMOUS EPITHELIAL CELLS 10-20(A) < OR = 5 /HPF [facility] [place] BACTERIA NONE SEEN NONE SEEN /HPF [facility] [place] HYALINE CAST NONE SEEN NONE SEEN /LPF [facility] NOTE See Below [facility] Comment: This urine was analyzed for the presence of WBC, RBC, bacteria, casts, and other formed elements. Only those elements seen were reported. TRANSITIONAL EPITHELIAL CELLS CANCELED [facility] [place] Comment:Result canceled by t he ancillary. RENAL EPITHELIAL CELLS CANCELED [facility] Comment:Result canceled by t he ancillary. CALCIUM OXALATE CRYSTALS CANCELED [facility] [place] Comment:Result canceled by t he ancillary. TRIPLE PHOSPHATE CRYSTALS CANCELED [facility] [place] Comment:Result canceled by t he ancillary. URIC ACID CRYSTALS CANCELED [facility] [place] [place] Comment:Result canceled by t he ancillary. AMORPHOUS SEDIMENT CANCELED [facility] [place] [place] Comment:Result canceled by t he ancillary. CRYSTALS CANCELED [facility] [place] [place] Comment:Result canceled by t he ancillary. GRANULAR CAST CANCELED [facility] [place] [place] Comment:Result canceled by t he ancillary. CASTS CANCELED [facility] [place] [place] Comment:Result canceled by t he ancillary. YEAST CANCELED [facility] [place] Comment:Result canceled by t he ancillary. COMMENTS CANCELED [facility] [place] Comment:Result canceled by t he ancillary. NOTE [facility] [place] Comment: This urine was analyzed for the presence of WBC, RBC, bacteria, casts, and other formed elements. Only those elements seen were reported. Urine Urine specimen / Unknown 06/13/2024 1:52 PM CDT 06/14/2024 4:45 AM CDT Brynn Levine APRN, CNM LAB - NO BLOOD D RAW [facility] [place] [address] [place] [address] [facility] [place] [address] [place] [address] * RFLX - REFLEXIVE URINE CULTURE (06/13/2024 1:52 PM CDT) REFLEXIVE URINE CULTURE [facility] [place] Comment:CULTURE INDICATED - RESULTS TO FOLLOW 06/13/2024 1:52 PM CDT 06/14/2024 4:45 AM CDT Brynn Levine APRN,CNM LAB - NO BLOOD D RAW [facility] [address] [place] [address] [facility] [place] [address] [facility] [place] [place] [address] * (ABNORMAL) URINE POCT (06/05/2024 3:10 PM CDT) Pathologist [facility] URINE HCG POS(A) NEG [facility] [place] POCT LAB INTERNAL QC [facility] [place] POCT LAB Urine Urine specimen / Unknown 06/05/2024 3:10 PM CDT Chastity Welch INSPECTOR ASSEMBLY,TELEPHONE CLERK LAB - N O BLOOD DRAW [facility] [place] POCT LAB [address] [address], [place] * HEPATITIS C AB W/RFLX HCV RNA, QT, RT PCR (04/19/2022 4:37 PM CDT) Pathologist [facility] HEPATITIS C ANTIBODY NON-REACT RAYO NON-REACT RAYO [facility] [place] SIGNAL TO CUT-OFF 0.26 <1.00 [facility] [place] Comment: HCV antibody was non-reactive. There is no laboratory evidence of HCV infection. In most cases, no further action is required. However, if recent HCV exposure is suspected, a test for HCV RNA (test code 47820) is suggested. For additional information please refer to http://education.Socket Mobile/faq/JUE39i1 (This link is being provided for informational/ educational purposes only.) Blood Blood / Unknown 04/19/2022 4 :37 PM CDT 04/20/2022 2:32 AM CDT Brynn Levine APRN, CNM LAB - BLOOD DRAW [facility] [place] [address] [place] [address] [facility] [place] [place] [address] [place] [address] * HIV 1/2 AG & AB W/RFLX (4TH GEN) (04/19/2022 4:37 PM CDT) [facility] HIV AG/AB, 4TH GEN NON-REACT RAYO NON-REACT RAYO [facility] [place] [place] Comment: HIV-1 antigen and HIV-1/HIV-2 antibodies were not detected. There is no laboratory evidence of HIV infection. PLEASE NOTE: This information has been disclosed to you from records whose confidentiality may be protected by state law. ??If your state requires such protection, then the state law prohibits you from making any further disclosure of the information without the specific written consent of the person to whom it pertains, or as otherwise permitted by law. A general authorization for the release of medical or other information is NOT sufficient for this purpose. ?? For additional information please refer to http://education.CloudRunner I/O.Button Brew House/faq/RZS143 (This link is being provided for informational/ educational purposes only.) The performance of this assay has not been clinically validated in patients less than 2 years old. Blood Blood / Unknown 04/19/2022 4 :37 PM CDT 04/20/2022 2:32 AM CDT Brynn Levine APRN, CNM LAB - BLOOD DRAW [facility] [place] [address] [place] [address] [facility] [place] [place] [address] [place] [address] * (ABNORMAL) LIPIDS W RFLX TO DIRECT LDL (04/19/2022 4:37 PM CDT) CHOLESTEROL, TOTAL 161 <200 mg/dL [facility] [place] HDL CHOLESTEROL 48(L) > OR = 50 mg/dL [facility] [place] TRIGLYCERIDES 107 <150 mg/dL [facility] [place] LDL-CHOLESTEROL 93 mg/dL (calc) [facility] [place] Comment: Reference range: <100 Desirable range <100 mg/dL for primary prevention; ?? <70 mg/dL for patients with CHD or diabetic patients with > or = 2 CHD risk factors. LDL-C is now calculated using the Amna calculation, which is a validated novel method providing better accuracy than the Friedewald equation in the estimation of LDL-C. Enrique SS et al. RICKY. 2013;310(19): 3398-2390 (http://education.BillShrink/faq/VVC163) CHOL/HDLC RATIO 3.4 <5.0 (calc) [facility] [place] NON-HDL CHOLESTEROL 113 <130 mg/dL (calc) [facility] [place] Comment: For patients with diabetes plus 1 major ASCVD risk factor, treating to a non-HDL-C goal of <100 mg/dL (LDL-C of <70 mg/dL) is considered a therapeutic option. Blood Blood / Unknown 04/19/2022 4 :37 PM CDT 04/20/2022 2:32 AM CDT Brynn Levine APRN, CNM LAB - BLOOD DRAW [facility] [place] [address] [place] [address] [facility] [place] [address] [facility] [place] [address] * (ABNORMAL) HEMOGLOBIN, GLYCOSYLATED (A1C) (04/19/2022 4:37 PM CDT) HEMOGLOBIN A1C 5.8(H) <5.7 % of total Hgb [facility] [place] Comment: For someone without known diabetes, a hemoglobin A1c value between 5.7% and 6.4% is consistent with prediabetes and should be confirmed with a follow-up test. For someone with known diabetes, a value <7% indicates that their diabetes is well controlled. A1c targets should be individualized based on duration of diabetes, age, comorbid conditions, and other considerations. This assay result is consistent with an increased risk of diabetes. Currently, no consensus exists regarding use of hemoglobin A1c for diagnosis of diabetes for children. Blood Blood / Unknown 04/19/2022 4 :37 PM CDT 04/20/2022 2:32 AM CDT Brynn Levine APRN, CNM LAB - BLOOD DRAW [facility] [place] [address] [place] [address] [facility] [place] [address] [place] [address] * THIN PREP IMAGE PAP + HPV RNA E6/E7 W/RFLX HPV 16, 18/45 (04/19/2022 4:34 PM CDT) CLINICAL INFORMATION [facility] Comment:Normal exam LMP [facility] Comment:[id number] PREV. PAP [facility] Comment:NONE GIVEN PREV. BX [facility] Comment:NONE GIVEN SOURCE [facility] Comment:Cervix, Endocervix STATEMENT OF ADEQUACY [facility] Comment: Satisfactory for evaluation. Endocervical/transformation zone component present. INTERPRETATION/RESU LT [facility] Comment:Negative for intraep ithelial lesion or malignancy. COMMENT [facility] Comment: This Pap test has been evaluated with computer assisted technology. ENGINEER TECHNICAL STAFF [facility] [place] Comment: GXX, CT (ASCP) CT Screening location: [address] ??[id number] COMMENT [facility] HPV MRNA E6/E7 Not Detected Not Detected [facility] Comment: Methodology: Trimmer Sorter-Mediated Amplification This assay detects E6/E7 viral messenger RNA (mRNA) from 14 high-risk HPV types (16,18,31,33,35,39,45,51,52,56,58,59,66,68). The analytical performance characteristics of this assay have been determined by [facility]. The modifications have not been cleared or approved by the FDA. This assay has been validated pursuant to the CLIA regulations and is used for clinical purposes. For additional information, please refer to http://education.Socket Mobile/faq/SVM099u0 (This link if provided for information/ educational purposes only.) REPORT STATUS CANCELED [facility] Comment:Result canceled by t he ancillary. GENERAL CATEGORIZATION CANCELED [facility] Comment:Result canceled by t he ancillary. INFECTION CANCELED [facility] Comment:Result canceled by t he ancillary. REVIEW ENGINEER TECHNICAL STAFF CANCELED [facility] Comment:Result canceled by t he ancillary. PATHOLOGIST CANCELED [facility] Comment:Result canceled by t he ancillary. Swab Cervix uteri structure / Unknown 04/19/2022 4:34 PM CDT 04/20/2022 3:25 AM CDT Narrative [facility] - 04/21/2022 1:22 AM CDT EXPLANATORY NOTE: The Pap is a screening test for cervical cancer. It is not a diagnostic test and is subject to false negative and false positive results. It is most reliable when a satisfactory sample, regularly obtained, is submitted with relevant clinical findings and history, and when the Pap result is evaluated along with historic and current clinical information. Brynn Levine APRN, CNM LAB - NO BLOOD D RAW [facility] [address] [place] [address] [employer] - REPLACED BY [facility] [address] [place] [address] from Last 3 Months or Most Recently Relevant to Health Maintenance Care Teams Loan Clerk Relationship Specialty Start Date End Date Brynn Levine APRN, CNM [address] [place] [phone] PCP - General Explosive Technician, Certified Nurse 04/16/22
--- OUTSIDE RECORDS SUMMARY | 2024-06-16 20:20 | XMS_ITS | Encounter Summary ---
Author Organization [facility] Address [address] [place] [address] Care Team Providers Care Animal Care Assistant Name Role Phone Brynn Levine APRN, CNM Primary Care Provider + Reason for Visit * Reason Comments Return OB Visit Encounter Details Date Type Department Care Team (Latest Contact Info) Description 06/13/2024 1:00 PM PDT OB Initial Visit (Nurse) [facility] [address] [phone] Brynn Levine APRN, CNM [address] [phone] Harjit Merritt RN [address] [address] Encounter for supervision of other normal , first trimester (Primary Dx); Vaginal bleeding affecting early Social History Tobacco Use Types Packs/Day Years [...] PM PDT documented as of this encounter Last Filed Vital Signs Vital Sign Reading Time Taken Comments Blood Pressure 125/79 06/13/2024 1:06 PM CDT Pulse 82 06/13/2024 1:06 PM CDT Temperature 36.4 ??C (97.6 ??F) 06/13/2024 1:06 PM CD T Respiratory Rate - - Oxygen Saturation - - Inhaled Oxygen Concentration - - Weight - - Height - - Body Mass Index - - documented in this encounter Progress Notes * Harjit Merritt RN - 06/13/2024 1:06 PM CDT Patient is here for OB Orientation. Patient presents alone. Patient is , current gestational age of . All labs drawn today including glucose testing were explained to the patient. Reviewed and completed patient medical and family histories. Provided patient with and reviewed/counseled/educated on packet including information on: WIC Fish consumption during What to expect at each stage of Safe OTC medications [place] screening Classes ([employer]) Map of [facility] and encouraged her to take a tour to be familiar with the hospital. Registration form completed and faxed to [facility] at [phone] and copy sent to [facility]. [facility] Everywhere ID and letter generated to be sent to [facility]. Consent for information given to [employer] was obtained Advised to follow up per provider instructions. Patient verbalized understanding and agrees with the plan. Helped patient apply for WIC. No Dental referral placed, patient is already being seen elsewhere. Harjit Merritt RN * Brynn Levine APRN,THONY - 06/13/2024 1:01 PM CDT OB Orientation Visit Maryam Hu is a 38 year old with history of breast cysts, miscarriages x2, and pelvic floor prolapse (cystocele) who presents to the clinic today for OB orientation visit. Gestational age unknown. Reportedly her LMP is 05/22/24, which would give her an estimated gestational ageof 3w1d which does not compute. She took a positive home UPT one day before her period started due to feeling dizzy, headaches, and acid reflux. Then she had a regular 5-day period. She took two positive home UPTs after her period ended. She no longer has those symptoms, however today she reports vaginal spotting without cramping for the past 6 days. complicated by: -AMA history: - -hx two early miscarriages (2020, 2021) -hx three term vaginal deliveries Social history: -moved to [place] January,, lived in [place] for 15 years prior -currently lives with partner Last Pap smear: 04/19/22 - NILM, neg HPV Vaccines due today: none The US Prevention Task Force recommendations for ASA were reviewed: (Source: US Prevention Task Force 08/10/16) Start 81 mg ASA daily at 12-28 weeks through 36 weeks High Risk (if patient has any one of these risk factors) -Hx of preeclampsia; dorcas when accompanied by adverse outcome -Multifetal gestation -Chronic HTN -Type 1 or 2 diabetes -Renal disease -Autoimmune disease (SLE, antiphospholipid antibody syndrome) Moderate risk (consider if patient has 2 or more of these) -Nulliparity, -Obesity w BMI>30, -Family hx of preeclampsia (mother or sister), -Socio-demographic characteristics (, low socioeconomic status), Age > or = to 35 years -Personal hx factors (low weight, SGA, previous adverse preg outcome, > 10 year interval) Patient DOES NOT qualify for low dose aspirin therapy. Patient Active Problem List Diagnosis Prediabetes Breast mass Cellulitis of breast Encounter to establish care with new doctor Preop general physical exam Fatty infiltration of liver No current outpatient medications on file prior to visit. No current facility-administered medications on file prior to visit. No Known Allergies 06/13/2024 1:00 PM Little interest or pleasure in doing things Not at all Feeling down, depressed or hopeless [include irritable if under 18] Not at all PHQ2 Score 0 Little interest or pleasure in doing things Not at all Feeling down, depressed or hopeless [include irritable if under 18] Not at all Trouble falling or staying asleep, or sleeping too much More than half the days Feeling tired or having little energy More than half the days Poor appetite or overeating Not at all Feeling bad about yourself - or that you are a failure or have let yourself or your family down Notat all Trouble concentrating on things like school work, reading or watching TV? Not at all Moving or speaking so slowly that other people could have noticed? Or the opposite - being so fidgety or restless that you have been moving around a lot more than usual Not at all Thoughts you would be better off or of hurting yourself in some way Not at all If you checked off any problems, how difficult have these problems made it for you to do your work,take care of things at home, or get along with other people? Not difficult at all PHQ-9 Total Score (Auto Calculated) 4 Depression Severity: None-minimal OBJECTIVE: 06/13/2024 1:06 PM BP 125/79 Constitutional: She is oriented to person, place, and time. She appears well- developed and well-nourished. No distress. HENT: Head: Normocephalic and atraumatic. Eyes: Conjunctivae and EOM are normal. Pulmonary/Chest: Effort normal. Neurological: She is alert and oriented to person, place, and time. Skin: She is not diaphoretic. Psychiatric: She has a normal mood and affect. Vitals reviewed. ASSESSMENT/PLAN: Z34.81 Encounter for supervision of other normal , first trimester (primary encounter diagnosis) O20.9 Vaginal bleeding affecting early Plan : ABO GROUP & RH TYPE BLOOD COUNT COMPLETE AUTO&AUTO DIFRNTL WBC URINALYSIS, COMPLETE W/REFLEX TO CULTURE SURESWAB, CT/NG, T VAGINALIS GONADOTROPIN CHORIONIC QUANTITATIVE GONADOTROPIN CHORIONIC QUANTITATIVE (Future) -Reviewed warning s/sx including vaginal bleeding, pelvic pain or cramping. -Completed OBO intake with the nurses -New OB labs NOT drawn today d/t concern for miscarriage -lab-only in 2 days for repeat hCG -ultrasound 06/20 -will call with lab results and management plan The following were addressed in today's visit: Weight management: excluded patient from BMI follow-up because: is documented in this encounter Plan of Treatment Upcoming Encounters Date Type Department Care Team (Late st Contact Info) Description 06/26/2024 8:00 AM PDT Telemedicine Visit [facility] [address] [place] [phone] Brynn Levine APRN, CNM [address] [phone] 07/03/2024 11:00 AM PDT Interim Notes [facility] [address] [place] [phone] documented as of this encounter Procedures Procedure Name Priority Date/Time Associated Diagnosis Comments ABO GROUP & RH TYPE Routine 06/13/2024 1 :53 PM CDT Vaginal bleeding affecting early BLOOD COUNT COMPLETE AUTO&AUTO DIFRNTL WBC Routine 06/13/2024 1:53 PM CDT Vaginal bleeding affecting early GONADOTROPIN CHORIONIC QUANTITATIVE Routine 06/13/2024 1:53 PM CDT Vaginal bleeding affecting early SURESWAB, CT/NG, T VAGINALIS Routine 06/13/2024 1:52 PM CDT Vaginal bleeding affecting early URINE CULTURE W ID & SENS Routine 06/13/2024 1:52 PM CDT URINALYSIS, COMPLETE W/REFLEX TO CULTURE Routine 06/13/2024 1:52 PM CDT Vaginal bleeding affecting early RFLX - REFLEXIVE URINE CULTURE Routine 06/13/2024 1:52 PM CDT documented in this encounter Results * (ABNORMAL) GONADOTROPIN CHORIONIC QUANTITATIVE (06/15/2024 8:34 AM CDT) HCG, TOTAL, QN 8,177(H) mIU/mL [employer] [facility] Comment: Reference Range Non or premenopausal ?<5 Postmenopausal ? <10 Values from different assay methods may vary. The use of this assay to monitor or to diagnose patients with cancer or any condition unrelated to has not been cleared or approved by the FDA or the felling machine operator of the assay. Blood Blood / Unknown 06/15/2024 8 :34 AM CDT 06/16/2024 2:52 AM CDT Brynn Levine APRN,THONY LAB - BLOOD DRAW [employer] [facility] [address] [place] [address] [employer] [place] [address] [place] [address] * (ABNORMAL) GONADOTROPIN CHORIONIC QUANTITATIVE (06/13/2024 1:53 PM CDT) [facility] HCG, TOTAL, QN 6,654(H) mIU/mL [employer] [place] Comment: Reference Range Non or premenopausal ?<5 Postmenopausal ? <10 Values from different assay methods may vary. The use of this assay to monitor or to diagnose patients with cancer or any condition unrelated to has not been cleared or approved by the FDA or the felling machine operator of the assay. Blood Blood / Unknown 06/13/2024 1 :53 PM CDT 06/14/2024 1:23 AM CDT Brynn Levine APRN,THONY LAB - BLOOD DRAW [employer] [facility] [address] [place] [address] [employer] [place] [address] [place] [address] * BLOOD COUNT COMPLETE AUTO&AUTO DIFRNTL WBC (06/13/2024 1:53 PM CDT) [facility] WHITE BLOOD CELL COUNT 5.8 3.8 - 10.8 Thousand/ uL [facility] [place] RED BLOOD CELL COUNT 4.28 3.80 - 5.10 Million/u L [facility] [place] HEMOGLOBIN 12.6 11.7 - 15.5 g/dL [facility] [place] HEMATOCRIT 39.0 35.0 - 45.0 % [facility] [place] MCV 91.1 80.0 - 100.0 fL [facility] [place] MCH 29.4 27.0 - 33.0 pg [facility] [place] MCHC 32.3 32.0 - 36.0 g/dL [facility] [place] RDW 13.0 11.0 - 15.0 % [facility] [place] PLATELET COUNT 286 140 - 400 Thousand/ uL [facility] [place] MPV 10.2 7.5 - 12.5 fL [facility] [place] ABSOLUTE NEUTROPHILS 4,309 1,500 - 7,800 cells/uL [facility] [place] ABSOLUTE LYMPHOCYTES 870 850 - 3,900 cells/uL [facility] [place] ABSOLUTE MONOCYTES 522 200 - 950 cells/uL [facility] [place] ABSOLUTE EOSINOPHILS 81 15 - 500 cells/uL [facility] [place] ABSOLUTE BASOPHILS 17 0 - 200 cells/uL [facility] [place] NEUTROPHILS 74.3 % [facility] [place] LYMPHOCYTES 15.0 % [facility] [place] MONOCYTES 9.0 % [facility] [place] EOSINOPHILS 1.4 % [facility] [place] BASOPHILS 0.3 % [facility] [place] ABSOLUTE BAND NEUTROPHILS CANCELED [facility] [place] Comment:Result canceled by t he ancillary. ABSOLUTE METAMYELOCYTES CANCELED [facility] [place] Comment:Result canceled by t he ancillary. ABSOLUTE MYELOCYTES CANCELED [facility] [place] Comment:Result canceled by t he ancillary. ABSOLUTE PROMYELOCYTES CANCELED [facility] [place] Comment:Result canceled by t he ancillary. ABSOLUTE BLASTS CANCELED [facility] [place] Comment:Result canceled by t he ancillary. ABSOLUTE NUCLEATED RBC CANCELED [facility] Comment:Result canceled by t he ancillary. BAND [...] Levine APRN, CNM LAB - BLOOD DRAW Performing Organization Address [facility] Co de Phone Number [facility] [place] [address] [place] [address] [facility] [place] [address] [place] [address] * ABO GROUP & RH TYPE (06/13/2024 1:53 PM CDT) ABO GROUP B [facility] [place] RH TYPE RH(D) POSITIVE [facility] [place] COMMENT [facility] [place] Blood Blood / Unknown 06/13/2024 1 :53 PM CDT 06/14/2024 3:45 AM CDT Narrative [facility] [place] - 06/14/2024 9:30 AM CDT For additional information, please refer to http://education.Rumgr.Textronics/faq/KFE540 (This link is being provided for informational/ educational purposes only.) Brynn Levine APRN, CNM LAB - BLOOD DRAW Performing Organization Address [facility] Co de Phone Number [facility] [place] [address] [place] [address] [facility] [place] [address] [place] [address] * URINE CULTURE W ID & SENS (06/13/2024 1:52 PM CDT) CULTURE, URINE, ROUTINE See Note [facility] [place] Comment: ??CULTURE, URINE, ROUTINE ?Micro Number: ?[id number] ??Test Status: ? Final ??Specimen Source: ?? Urine ??Specimen Quality: ??Adequate ??Result: ?Mixed genital sarah isolated. These superficial ? bacteria are not indicative of a urinary tract ? infection. No further organism identification is ? warranted on this specimen. If clinically ? indicated, recollect clean-catch, mid-stream ? urine and transfer immediately to Urine Culture ? Transport Tube. SOURCE URINE [facility] [place] STATUS FINAL [facility] [place] RESULT Mixed genital sarah isolated. These superficial bacteria are not indicative of a urinary tract infection. No further organism identification is warranted on this specimen. If clinically indicated, recollect clean-catch, mid-stream urine and transfer immediately to Urine Culture Transport Tube. [facility] [place] ISOLATE 1 DNR [facility] [place] ISOLATE 2 DNR [facility] [place] ISOLATE 3 DNR [facility] [place] ISOLATE 4 DNR [facility] [place] ISOLATE 5 DNR [facility] [place] COMMENT DNR [facility] [place] 06/13/2024 1:52 PM CDT 06/13/2024 1:53 PM CDT Brynn Levine APRN, CNM LAB - NO BLOOD D RAW [facility] [place] [address] [place] [address] [facility] [place] [address] [place] [address] * RFLX - REFLEXIVE URINE CULTURE (06/13/2024 1:52 PM CDT) REFLEXIVE URINE CULTURE [facility] [place] Comment:CULTURE INDICATED - RESULTS TO FOLLOW 06/13/2024 1:52 PM CDT 06/14/2024 4:45 AM CDT Brynn Levine APRN, CNM LAB - NO BLOOD D RAW [facility] [place] [address] [place] [address] [facility] [place] [address] [place] [address] * SURESWAB, CT/NG, T VAGINALIS (06/13/2024 1:52 PM CDT) CHLAMYDIA TRACHOMATIS RNA, TMA NOT DETECTED NOT DETECTED [facility] [place] [facility] [place] GONORRHO[facility] RNA, TMA NOT DETECTED NOT DETECTED [facility] [place] - [facility] COMMENT [facility] DIAGNOSTICS - [place] SURESWAB(R) TRICHOMONAS VAGINALIS RNA, QL TMA NOT DETECTED NOT DETECTED [facility] [facility] [place] Comment: For additional information, please refer to [email or web address].VIRIDAXIS/ faq/Trichomonastma (This link is being provided for informational/ educational purposes only.) Swab Vaginal structure / Unknown 06/13/2024 1:52 PM CDT 06/14/2024 10:47 AM CDT Narrative STACIE MELO - 06/15/2024 12:21 PM CDT The analytical performance characteristics of this assay, when used to test SurePath(TM) specimens have been determined by [employer]. The modifications have not been cleared or approved by the FDA. This assay has been validated pursuant to the CLIA regulations and is used for clinical purposes. For additional information, please refer to https://Ingenico.VIRIDAXIS/faq/MQD831 (This link is being provided for information/ educational purposes only.) Brynn Levine APRN, CNM LAB - NO BLOOD D RAW STACIE MELO [address] [place] [address] [facility] [address] [place] [address] * (ABNORMAL) URINALYSIS, COMPLETE W/REFLEX TO CULTURE [...] RENAL EPITHELIAL CELLS CANCELED [facility] [place] Comment:Result canceled by t he ancillary. CALCIUM [...] - NO BLOOD D RAW [facility] [place] [address] [place] [address] [facility] [place] [address] [place] [address] documented in this encounter Visit Diagnoses Diagnosis Encounter for supervision of other normal , first trimester- Primary Vaginal bleeding affecting early documented in this encounter Additional Health Concerns Assessment Noted Time PHQ-9 Depression Total Score: 4 06/13/20 24 1:00 PM PDT documented as of this encounter Care Teams Animal Care Assistant Relationship Specialty Start Date End Date Brynn Levine APRN, CNM [address] [place] [phone] PCP - General Precision Aircraft Structure Assembler, Certified Nurse 04/16/22 documented as of this encounter
--- OUTSIDE RECORDS SUMMARY | 2024-06-16 20:20 | XMS_ITS | Encounter Summary ---
Author Organization [facility] Address [address] [place] [address] Care Team Providers Care Director Of Advertising Sales Name Role Phone Brynn Levine APRN, CNM Primary Care Provider + Reason for Referral * Diagnostic Procedures (Urgent) - Authorized Specialty Diagnoses / Procedures Referred By Michael gonzalez Referred To Contact Diagnoses Positive urine test Procedures REFERRAL FOR OB ULTRASOUND REFERRAL FOR OB ULTRASOUND Chastity Welch APRN, CNP [address] [place] [phone] [facility] [address] [place] [phone] Referral ID Status Reason Start Date Expiration Date Visits Requested Visits Authorized [id number] Authorized Service Not Available at Clinic 06/05/2024 06/05/2025 1 1 Reason for Visit * Reason Comments Test Encounter Details Date Type Department Care Team ([facility] st Contact Info) Description 06/05/2024 3:00 PM PDT Office Visit [facility] [address] [place] [phone] Chastity Welch APRN, CNP [address] [place] [phone] Positive urine test (Primary Dx) Social History Tobacco Use Types Packs/Day Years [...] Sign Reading Time Taken Comments Blood Pressure 122/74 06/05/2024 2:58 PM CDT Pulse 100 06/05/2024 2:58 PM CDT Temperature 36.6 ??C (97.8 ??F) 06/05/2024 2:56 PM CD T Respiratory Rate 18 06/05/2024 2:56 PM CDT Oxygen Saturation 98% 06/05/2024 2:56 PM CDT Inhaled Oxygen Concentration - - Weight 75.5 kg (166 lb 6 oz) 06/05/2024 2:56 PM CDT Height 154 cm (5' 0.63) 06/05/2024 2:56 PM CDT Body Mass Index 31.82 06/05/2024 2:56 PM CDT documented in this encounter Progress Notes * Asia Stout RN - 06/05/2024 3:43 PM CDT Patient presented for confirmation of . Patient presents alone History: Patient is approximately weeks GA based on definite LMP (05/22/24). Education: Provided patient with and discussed UPT packet including education and counseling on: Nausea and vomiting Folic acid and vitamins Miscarriage OB danger signs and when to call clinic Safe OTC meds during Importance of regular OB care Provided map to [facility]. Follow up: Dating ultrasound scheduled OBO scheduled for Pt Advocate appt scheduled Pre- Vitamins provided Appointments for the next 13 months 06/28/2024 9:00 AM SLIDING FEE APPLICATION [facility] PATIENT ADVOCATE DENTAL 40 min Patient encouraged to follow up sooner if necessary. Patient verbalized understanding and agrees tothe plan. Asia Stout RN * Chastity Welch, SKIVER SOCK LININGS,FOOD SERVICE SPECIALIST - 06/05/2024 3:02 PM CDT UPT VISIT Teacher Private: n/a Subjective: Maryam Hu is a 38 year old with history of past miscarriages (x2), presenting for test. This is an unplanned . Maryam states taking 3 home urine test of which all resulted positive. She presents with the following symptoms: tired. Patient's last menstrual period was 05/22/2024 (approximate). Menstrual Hx: Irregular periods. history: 5 pregnancies, last two pregnancies miscarried (6 wks and 8 wks) Social history: Non smoker/alcohol drinker OB History Para Term AB Living 5 3 3 2 3 SAB IAB Ectopic Molar Multiple Live Births 1 # Outcome Date GA Lbr Yosvany/2nd Weight Sex Delivery Anes PTL Lv 5 SAB 06/28/21 4 AB 3 Term 2 Term 1 Term Obstetric Comments Two first trimester miscarriages. Three term vaginal deliveries. Denies complications. No Known Allergies No current outpatient medications on file. No current facility-administered medications for this visit. ROS: A 10 point review of systems was performed and is negative except for which is stated in the HPI. PHQ 9 06/05/2024 2:00 PM Little interest or pleasure in doing things Not at all Feeling down, depressed or hopeless [include irritable if under 18] Not at all Trouble falling or staying asleep, or sleeping too much Several days Feeling tired or having little energy Several days Poor appetite or overeating Several days Feeling bad about yourself - or that [...] at all PHQ-9 Total Score (Auto Calculated) 3 Depression Severity: None-minimal Objective: BP 122/74 (Left Arm, Sitting, Regular Adult) Pulse 100 Temp 97.8 ??F (36.6 ??C) Resp 18 Ht 5' 0.63 (1.54 m) Wt 166 lb 6 oz (75.5 kg) LMP 05/27/2024 (Exact Date) SpO2 98% BMI 31.82 kg/m?? OB Status Having periods Smoking Status Never BSA 1.8 m?? Physical Exam Constitutional: She is oriented to person, place, and time. She appears well- developed and well-nourished. No distress. HENT: Head: Normocephalic and atraumatic. Eyes: Conjunctivae and EOM are normal. Pulmonary/Chest: Effort normal. Neurological: She is alert and oriented to person, place, and time. Skin: She is not diaphoretic. Psychiatric: She has a normal mood and affect. Vitals reviewed. Assessment/Diagnosis: Z32.01 Positive urine test (primary encounter diagnosis) Plan : URINE POCT BLOOD COUNT COMPLETE AUTO&AUTO DIFRNTL WBC GONADOTROPIN CHORIONIC QUANTITATIVE ABO GROUP & RH TYPE US PREG UTERUS AFTER 1ST TRIMEST 1 GESTATION REFERRAL FOR OB ULTRASOUND Positive UPT packet per RN. Prescription for vitamins and samples given. precautions handout given. Schedule dating US and OBO. Schedule appt with patient advocate to apply for medical insurance. The following were addressed in today's visit: Depression screening:DEPRESSION FU PROVIDED (MU CMS-2): Assessed, follow-up as needed documented in this encounter Miscellaneous Notes * Result Encounter Note - Chastity Welch APRN, CNP - 06/08/2024 6:06 AM CDT HCG positive for , results will be reviewed with patient during follow up appointment * Result Encounter Note - Chastity Welch APRN, CNP - 06/05/2024 3:32 PM CDT Positive test reviewed with patient. documented in this encounter Plan of Treatment Upcoming Encounters Date Type Department Care Team (Late st Contact Info) Description 06/26/2024 8:00 AM PDT Telemedicine Visit [facility] [address] [phone] Brynn Levine APRN,THONY [address] [phone] 07/03/2024 11:00 AM PDT Interim Notes [facility] [address] [place] [phone] Scheduled Orders Name Type Priority Associated Diagnoses Orde r Schedule US PREG UTERUS AFTER 1ST TRIMEST 1/ GESTATION Imaging Routine Positive urine test Ordered: 06/05/2024 REFERRAL FOR OB ULTRASOUND Imaging Routine Positive urine test Ordered: 06/05/2024 documented as of this encounter Procedures Procedure Name Priority Date/Time Associated Diagnosis Comments ABO GROUP & RH TYPE Routine 06/05/2024 3 :34 PM CDT Positive urine test BLOOD COUNT COMPLETE AUTO&AUTO DIFRNTL WBC Routine 06/05/2024 3:34 PM CDT Positive urine test GONADOTROPIN CHORIONIC QUANTITATIVE Routine 06/05/2024 3:34 PM CDT Positive urine test URINE POCT Routine 06/05/2024 3:10 PM CDT Positive urine test documented in this encounter Results * (ABNORMAL) GONADOTROPIN CHORIONIC QUANTITATIVE (06/07/2024 8:15 AM CDT) HCG, TOTAL, QN 2,568(H) mIU/mL [facility] [place] Comment: Reference Range Non or premenopausal ?<5 Postmenopausal ? <10 Values from different assay methods may vary. The use of this assay to monitor or to diagnose patients with cancer or any condition unrelated to has not been cleared or approved by the FDA or the floor cashier of the assay. Blood Blood / Unknown 06/07/2024 8 :15 AM CDT 06/08/2024 1:48 AM CDT Chastity Welch APRN,FOOD SERVICE SPECIALIST LAB - B LOOD DRAW Performing Organization Address [facility]/ZIP Co de Phone Number [facility] [place] [address] [place] [address] [facility] [place] [address] [facility] [place] [address] * ABO GROUP & RH TYPE (06/05/2024 3:34 PM CDT) ABO GROUP B [facility] [place] RH TYPE RH(D) POSITIVE [facility] [place] [place] COMMENT [facility] [place] Blood Blood / Unknown 06/05/2024 3 :34 PM CDT 06/06/2024 3:59 AM CDT Narrative [facility] [place] [place] - 06/06/2024 8:24 AM CDT For additional information, please refer to http://[email or web address].it/faq/[email or web address] (This link is being provided for informational/ educational purposes only.) Chastity Welch APRN,FOOD SERVICE SPECIALIST LAB - B LOOD DRAW [facility] [place] [place] [address] [place] [address] [facility] [place] [place] [address] [place] [address] * (ABNORMAL) GONADOTROPIN CHORIONIC QUANTITATIVE (06/05/2024 3:34 PM CDT) [facility] [address] HCG, TOTAL, QN 1,840(H) mIU/mL [facility] Comment: Reference Range Non or premenopausal ?<5 Postmenopausal ? <10 Values from different assay methods may vary. The use of this assay to monitor or to diagnose patients with cancer or any condition unrelated to has not been cleared or approved by the FDA or the floor cashier of the assay. Blood Blood / Unknown 06/05/2024 3 :34 PM CDT 06/06/2024 1:34 AM CDT Chastity Welch SKIVER SOCK LININGS,FOOD SERVICE SPECIALIST LAB - B LOOD DRAW [facility] [address] [facility] [address] [facility] [address] [place] [address] * (ABNORMAL) BLOOD COUNT COMPLETE AUTO&AUTO DIFRNTL WBC (06/05/2024 3:34 PM CDT) [facility] [address] WHITE BLOOD CELL COUNT 5.0 3.8 - 10.8 Thousand/ uL [facility] [place] RED BLOOD CELL COUNT 4.09 3.80 - 5.10 Million/u L [facility] [place] HEMOGLOBIN 12.4 11.7 - 15.5 g/dL [facility] [place] HEMATOCRIT 36.8 35.0 - 45.0 % [facility] [place] MCV 90.0 80.0 - 100.0 fL [facility] [place] MCH 30.3 27.0 - 33.0 pg [facility] [place] MCHC 33.7 32.0 - 36.0 g/dL [facility] [place] RDW 13.1 11.0 - 15.0 % [facility] [place] PLATELET COUNT 260 140 - 400 Thousand/ uL [facility] [place] MPV 10.9 7.5 - 12.5 fL [facility] [place] ABSOLUTE NEUTROPHILS 3,840 1,500 - 7,800 cells/uL [facility] [place] [place] ABSOLUTE LYMPHOCYTES 570(L) 850 - 3,900 cells/uL [facility] [place] ABSOLUTE MONOCYTES 430 200 - 950 cells/uL [facility] [place] [place] ABSOLUTE EOSINOPHILS 150 15 - 500 cells/uL [facility] [place] [place] ABSOLUTE BASOPHILS 10 0 - 200 cells/uL [facility] [place] [place] NEUTROPHILS 76.8 % [facility] [place] [place] LYMPHOCYTES 11.4 % [facility] [place] [place] MONOCYTES 8.6 % [facility] [place] [place] EOSINOPHILS 3.0 % [facility] [place] [place] BASOPHILS 0.2 % [facility] [place] [place] ABSOLUTE BAND [...] t he ancillary. Blood Blood / Unknown 06/05/2024 3 :34 PM CDT 06/06/2024 1:32 AM CDT Chastity Welch SKIVER SOCK LININGS,FOOD SERVICE SPECIALIST LAB - B LOOD DRAW [facility] [place] [address] [place] [address] [facility] [address] [place] [address] * (ABNORMAL) URINE POCT (06/05/2024 3:10 PM CDT) URINE HCG POS(A) NEG [facility] [place] [facility] INTERNAL QC [place] [facility] [place] [facility] Urine Urine specimen / Unknown 06/05/2024 3:10 PM CDT Chastity Welch APRN,HAYES LAB - N O BLOOD DRAW Performing Organization Address City/[facility]/ZIP Co de Phone Number [facility] [place] [facility] [address] [phone], documented in this encounter Visit Diagnoses Diagnosis Positive urine test- Primary examination or test, positive result documented in this encounter Additional Health Concerns Assessment Noted Time PHQ-9 Depression Total Score: 3 06/05/20 24 2:00 PM PDT documented as of this encounter Care Teams Director Of Advertising Sales Relationship Specialty Start Date End Date Brynn Levine APRN,THONY [address] [place] [phone] PCP - General Senior Ui Ux Developer, Certified Nurse 04/16/22 documented as of this encounter
--- OUTSIDE RECORDS SUMMARY | 2024-06-16 20:20 | XMS_ITS | Encounter Summary ---
Author Organization [facility] Address [address] [place] [address] Care Team Providers Care Transportation Consultant Name Role Phone Brynn Levine APRN, CNM Primary Care Provider + Encounter Details Date Type Department Care Team (Latest Contact Info) Description 06/07/2024 Travel Social History Tobacco Use Types Packs/Day [...] Description 06/26/2024 8:00 AM PDT Telemedicine Visit [facility] [address] [place] [phone] Brynn Levine APRN, CNM [address] [place] [phone] 07/03/2024 11:00 AM PDT Interim Notes [facility] [address] [place] [phone] documented as of this encounter Visit Diagnoses Not on filedocumented in this encounter Additional Health Concerns Assessment Noted Time PHQ-9 Depression Total Score: 3 06/05/20 24 2:00 PM PDT documented as of this encounter Care Teams Transportation Consultant Relationship Specialty Start Date End Date Brynn Levine APRN, CNM [address] [place] [phone] PCP - General Second Butler, Certified Nurse 04/16/22 documented as of this encounter
--- OUTSIDE RECORDS SUMMARY | 2024-06-16 20:20 | XMS_ITS | Encounter Summary ---
Author Organization [facility] Address [address] [place] [address] Care Team Providers Care Nipping Machine Operator Name Role Phone Brynn Levine APRN, CNM Primary Care Provider + Encounter Details Date Type Department Care Team (Latest Contact Info) Description 06/15/2024 Travel Social History Tobacco Use Types Packs/Day [...] Description 06/26/2024 8:00 AM PDT Telemedicine Visit [facility] [address] [place] [phone] Brynn Levine APRN, CNM [address] [place] [phone] 07/03/2024 11:00 AM PDT Interim Notes [facility] [address] [place] [phone] documented as of this encounter Visit Diagnoses Not on filedocumented in this encounter Additional Health Concerns Assessment Noted Time PHQ-9 Depression Total Score: 4 06/13/20 24 1:00 PM PDT documented as of this encounter Care Teams Nipping Machine Operator Relationship Specialty Start Date End Date Brynn Levine APRN, CNM [address] [place] [phone] PCP - General Molding Plasterer, Certified Nurse 04/16/22 documented as of this encounter
--- OUTSIDE RECORDS SUMMARY | 2024-06-16 20:20 | XMS_ITS | Encounter Summary ---
Author Organization [facility] Address [address] [place] [address] Care Team Providers Care Napper Grinder Name Role Phone Brynn Levine APRN, CNM Primary Care Provider + Encounter Details Date Type Department Care Team (Latest Contact Info) Description 06/05/2024 Travel Social History Tobacco Use Types Packs/Day [...] Description 06/26/2024 8:00 AM PDT Telemedicine Visit [facility] [address] [place] [phone] Brynn Levine APRN, CNM [address] [place] [phone] 07/03/2024 11:00 AM PDT Interim Notes [facility] [address] [place] [phone] documented as of this encounter Visit Diagnoses Not on filedocumented in this encounter Additional Health Concerns Assessment Noted Time PHQ-9 Depression Total Score: 3 06/05/20 24 2:00 PM PDT documented as of this encounter Care Teams Napper Grinder Relationship Specialty Start Date End Date Brynn Levine APRN, CNM [address] [place] [phone] PCP - General Maintenance Fitter, Certified Nurse 04/16/22 documented as of this encounter
[2024-06-16 20:23] LABS: Basophils Absolute Auto 0.01 K/uL (0.00-0.30); Basophils Percent Auto 0.2 % (0.0-3.0); Eosinophils Absolute Auto 0.05 K/uL (0.00-0.50); Hematocrit* 34.8 % (33.0-51.0); Hemoglobin* 11.5 gm/dL (12.0-16.0); Immature Granulocytes Abs Auto 0.01 K/uL (0.00-0.30); Immature Granulocytes Pct Auto 0.2 %; Lymphocytes Percent Auto 16.2 % (20-44); Mean Corpuscular HGB Conc 33 gm/dL (32-36); Mean Corpuscular Hemoglobin 30 pg (26-34); Mean Corpuscular Volume 90 fL (80-100); Monocytes Percent Auto 12.7 % (0.0-11.0); Neutrophils Absolute Auto 3.61 K/uL (1.7-7.0); Neutrophils Percent Auto 69.7 % (42.0-72.0); Platelet Count* 248 K/uL (140-440); Red Blood Count* 3.86 m/uL (4.00-5.20); White Blood Count* 5.18 K/uL (4.50-11.00)
[2024-06-16 20:26] LABS: Slide Review Reflex No
[2024-06-16 20:36] LABS: Chloride* 105 mmol/L (96-114); Potassium* 3.9 mmol/L (3.6-5.1); Sodium* 138 mmol/L (135-149)
[2024-06-16 20:39] LABS: Anion Gap 7 mEq/L (7-15); Blood Urea Nitrogen* 10 mg/dL (5-24); Calcium* 9.3 mg/dL (8.4-10.6); Carbon Dioxide* 26 mmol/L (20-32); Creatinine* 0.5 mg/dL (0.5-1.5); Est. Creatinine Clearance* 123.72; Estimated Glomerular Filt Rate 122 ml/min; Glucose* 141 mg/dL (60-115)
--- NOTE | 2024-06-16 21:25 | ED.GENADULT ---
HPI - General Adult General Chief complaint: Vaginal Bleeding Stated complaint: (gestation unknown); bleeding Time Seen by Provider: 06/16/24 19:49 History of Present Illness HPI narrative: This 38-year-old female states that she had her last menstrual period about a month ago. She had a positive test about 10 days ago and states that she has been bleeding with cramping for about a week. It has been progressively worsening. She has noted some clots with bright red blood vaginally. Related Data Home Medications ?Medication ?Instructions ?Recorded ?Confirmed vit no.95-ferrous 1 tab PO DAILY 06/16/24 06/16/24 fumarate 28 mg-folic acid 800 mcg tablet ( Multivitamins) Allergies Allergy/AdvReac Type Severity Reaction Status Date / Time No Known Drug Allergies Allergy Verified 06/16/24 19:50 Review of Systems Status of ROS: Reports: 10 or more systems reviewed and unremarkable except as noted in History and below Narrative: Constitutional: No fevers, no weight gain or loss. Eyes: No discharge. No vision changes. HENT: No congestion, no sore throat, no ear pain. Cardiovascular: No chest pain, no palpitations. Respiratory: No shortness of breath, no wheezes, no cough. Gastrointestinal: No vomiting, no diarrhea. Abdominal cramping. Genitourinary: No dysuria, no hematuria. Vaginal bleeding as described above. Musculoskeletal: Normal range of motion. Skin: No rashes, no pruritis. Neurological: No dizziness, weakness, sensory change, speech change. Endo/Heme/Allergies: No bruising or bleeding. No polydipsia. Pysch: no suicidality, no anxiety, no insomnia. All other systems reviewed and are negative. [facility] Medical History (Updated 06/16/24 @ 21:28 by Luisito Guerrero MD) Fatty infiltration of liver ?K76.0 - Fatty (change of) liver, not elsewhere classified (ICD-10) Prediabetes ?R73.03 - Prediabetes (ICD-10) Surgical History H/O breast biopsy ?Z98.890 - Other specified postprocedural states (ICD-10) Status post appendectomy (~1995) ?Z90.49 - Acquired absence of other specified parts of digestive tract (ICD-10) Social History (Updated 09/22/22 @ 10:12 by Annie Real MD) Narrative: : Homemaker: 3 kids, originally from [place] Serbian-speaking She does not smoke. She does not use alcohol. She does not work outside the home. Smoking Status: Never smoker Do you use any of these nicotine containing products: None Second hand tobacco smoke exposure: No How often do you have a drink containing alcohol: never How often do you have six or more drinks on one occasion: Never AUDIT-C Alcohol total score: 0 Non-prescribed substance use: denies use Caffeine: No service: No Exam Narrative: Exam Narrative: Constitutional: Well-developed, well-nourished, no acute distress. HEENT: Normocephalic, atraumatic. Neck: Normal range of motion. Nontender. Supple. Heart: Regular. No murmurs. Normal rate. Intact distal pulses. Lungs: Clear to auscultation. No chest discomfort. No wheezes, rhonchi, or rales. Abdomen: Normal bowel sounds. Tenderness in the lower abdomen. No rebound tenderness. Genitalia: Deferred. Back: No midline tenderness. Normal range of motion. Extremities: Normal range of motion. No injury. Skin: Intact. No rash. Warm. No erythema or pallor. Neurologic: No altered sensation. No weakness. Alert and oriented. Psychiatric: No suicidality. No anxiety or depression. No insomnia. Nursing notes and vitals signs are reviewed. Const: Vital Signs, click to edit/add: Vital Signs - 24 hr 06/16/24 19:46 Temperature 98.2 F Pulse Rate [Pulse Oximeter] 98 Respiratory Rate 16 Blood Pressure [Le ft Upper Arm] 131/83 Pulse Oximetry 96 Oxygen Delivery Me thod Room Air Course Vital Signs Vital signs: Initial Vital Signs Temperature 98.2 F 06/16/24 19:46 Temperature Source Temporal Artery Scan 06/16/24 19:46 Pulse Rate 98 06/16/24 19:46 Pulse Rhythm Regular 06/16/24 19:46 Pulse Strength 3+ Normal 06/16/24 19:46 Respiratory Rate 16 06/16/24 19:46 Blood Pressure 131/83 06/16/24 19:46 Blood Pressure Mean 99 06/16/24 19:46 Blood Pressure Position Sitting 06/16/24 19:46 Pulse Oximetry 96 06/16/24 19:46 Oxygen Delivery Method Room Air 06/16/24 19:46 Vital Signs Temperature 98.2 F 06/16/24 19:46 Pulse Rate 98 06/16/24 19:46 Respiratory Rate 16 06/16/24 19:46 Blood Pressure 131/83 06/16/24 19:46 Pulse Oximetry 96 06/16/24 19:46 Oxygen Delivery Method Room Air 06/16/24 19:46 Temperature 98.2 F 06/16/24 19:46 Pulse Rate 98 06/16/24 19:46 Respiratory Rate 16 06/16/24 19:46 Blood Pressure 131/83 06/16/24 19:46 Pulse Oximetry 96 06/16/24 19:46 Oxygen Delivery Method Room Air 06/16/24 19:46 Medical Decision Making MDM Narrative Medical decision making narrative: This patient comes in with report of and now has cramping and abdominal bleeding. Her beta hCG level returns at greater than 7000. Her hemoglobin is around 11. Her vital signs remained normal. An ultrasound of the shows an ectopic in the left fallopian tube. I contacted the helmet binder physician on-call who will come in to arrange for surgical removal of this ectopic . I informed the patient of these results and she is agreeable to this plan. Lab Data Labs: Lab Results 06/16/24 Range/Units 20:18 WBC 5.18 (4.50-11.00) K/uL RBC 3.86 L (4.00-5.20) m/uL Hgb 11.5 L (12.0-16.0) gm/dL Hct 34.8 (33.0-51.0) % MCV 90 (80-100) fL MCH 30 (26-34) pg MCHC 33 (32-36) gm/dL RDW Coeff of Juanis 13.0 (11.5-15.5) % Plt Count 248 (140-440) K/uL Neut % (Auto) 69.7 (42.0-72.0) % Lymph % (Auto) 16.2 L (20-44) % Evans % (Auto) 12.7 H (0.0-11.0) % Eos % (Auto) 1.0 (0.0-7.0) % Baso % (Auto) 0.2 (0.0-3.0) % Neut # (Auto) 3.61 (1.7-7.0) K/uL Lymph # (Auto) 0.80 L (0.90-2.90) K/uL Evans # (Auto) 0.70 (0.00-0.90) K/UL Eos # (Auto) 0.05 (0.00-0.50) K/uL Baso # (Auto) 0.01 (0.00-0.30) K/uL Abs Immat Gran (auto) 0.01 (0.00-0.30) K/uL Imm/Tot Granulo (auto) 0.2 % Sodium 138 (135-149) mmol/L Potassium 3.9 (3.6-5.1) mmol/L Chloride 105 (96-114) mmol/L Carbon Dioxide 26 (20-32) mmol/L Anion Gap 7 (7-15) mEq/L BUN 10 (5-24) mg/dL Creatinine 0.5 (0.5-1.5) mg/dL Estimated Creat Clear 123.72 Estimated GFR 122 ml/min Glucose 141 H (60-115) mg/dL Calcium 9.3 (8.4-10.6) mg/dL HCG, Quant 7182.10 mIU/mL Discharge Plan Discharge Clinical Impression: Ectopic without intrauterine Patient Disposition: Admitted As Inpatient Condition: Unchanged Prescriptions: No Action PNV cmb#95-ferrous fumarate-FA [ Multivitamins] 28 mg iron- 800 mcg tablet 1 tab PO DAILY Follow Up/Referrals: Provider,Not a Local [Primary Care Provider] -
--- NOTE | 2024-06-16 21:40 | P.GYNCN_ITS ---
PIPE LINE WALKER - CN: HPI Data of Consult Time Seen by Provider: 21:40 Date Seen: 06/16/24 Patient: Other Consult date: 06/16/24 Requesting Physician: Luisito Celaya MD Primary Care Provider: Not a Local Provider Consult Narrative Reason for consult: abdominal pain and vaginal bleeding Narrative: Maryam Frost is a 38 year old female 5 para 3013 who is approximately a 4 weeks by last menstrual period of approximately 05/21/2024 who presented to the emergency room today with cramping and vaginal bleeding as well as passing some clots. Bleeding started about 5:00 p.m. today. Last ate at approximately 5:00 p.m.. She had a beta HCG performed That was 7 182.10. Her hemoglobin is 11.5. Glucose was somewhat elevated at 141. On pelvic ultrasound: There is no No intrauterine gestation. Normal myometrial echotexture no myometrial masses. Endometrium no significant abnormality. Right ovary measures 2.9 x 1.5 x 2.1 cm. No suspicious masses and normal arterial and venous blood flow by color Doppler analysis. Left ovary measures 2.3 x 1.9 x 2.4 cm. There is a left that topic with a mean sac diameter of 10 mm compatible with an estimated gestational age of 5 weeks 5 days gestation with cardiac activity of 121 beats per minute. Normal arterial and venous blood flow on color Doppler analysis. Impression is left adnexal ectopic . No hemoperitoneum. All of the patient's history was obtained via her daughter, Emigdio who is a teenager. The patient was consented for a laparoscopic bilateral salpingectomy the patient states that she would like to have both of her fallopian tubes removed as she does not want to have anymore pregnancies. She understands that the ectopic is a life-threatening diagnosis. I reviewed how laparoscopic salpingectomy is performed and reviewed risks associated with this procedure including bleeding to the point of needing a blood transfusion approximately 1 in 500 chance of infection 1/400-1/500 and chance of injury to organs that are adjacent to the fallopian tubes of approximately 1/500. Consent form was reviewed and signed by both the patient and her daughter. All of their questions were answered. Please see Dr. Celaya's note for complete history and physical. cc:: CC: [facility] Medical History (Updated 06/16/24 @ 21:47 by Haley Castillo MD) Fatty infiltration of liver ?K76.0 - Fatty (change of) liver, not elsewhere classified (ICD-10) Prediabetes ?R73.03 - Prediabetes (ICD-10) Surgical History (Updated 06/16/24 @ 21:47 by Haley Castillo MD) Status post bilateral salpingectomy (06/16/24) ?Z90.79 - Acquired absence of other genital organ(s) (ICD-10) H/O breast biopsy ?Z98.890 - Other specified postprocedural states (ICD-10) Status post appendectomy (~1995) ?Z90.49 - Acquired absence of other specified parts of digestive tract (ICD- 10) Social History (Updated 09/22/22 @ 10:12 by Annie Real MD) Narrative: : Homemaker: 3 kids, originally from [facility] Sami- speaking She does not smoke. She does not use alcohol. She does not work outside the home. Smoking Status: Never smoker Do you use any of these nicotine containing products: None Second hand tobacco smoke exposure: No How often do you have a drink containing alcohol: never How often do you have six or more drinks on one occasion: Never AUDIT-C Alcohol total score: 0 Non-prescribed substance use: denies use Caffeine: No service: No Meds Home Medications and Allergies Home Medications ?Medication ?Instructions ?Recorded ?Confirmed ?Type vit no.95-ferrous 1 tab PO DAILY 06/16/24 06/16/24 History fumarate 28 mg-folic acid 800 mcg tablet ( Multivitamins) Allergies Allergy/AdvReac Type Severity Reaction Status Date / Time No Known Drug Allergies Allergy Verified 06/16/24 19:50 PIPE LINE WALKER - Exam Physical Exam: Vital signs: Temp Pulse Resp BP Pulse Ox O2 Del Method 98.2 F 98 16 131/83 96 Room Air 06/16/24 19:46 06/16/24 19:46 06/16/24 19:46 06/16/24 19:46 06/16/24 19:46 06/16/24 19:46 PIPE LINE WALKER - Results Labs Labs: Short CBC 06/16/24 Range/Units 20:18 WBC 5.18 (4.50-11.00) K/uL Hgb 11.5 L (12.0-16.0) gm/dL Hct 34.8 (33.0-51.0) % Plt Count 248 (140-440) K/uL BMP 06/16/24 20:18 Sodium 138 Potassium 3.9 Chloride 105 Carbon Dioxide 26 BUN 10 Creatinine 0.5 Glucose 141 H Calcium 9.3 Assessment and Plan Assessment and plan (1) Ectopic without intrauterine : Problem comment: left ectopic . Status: Acute (2) Status post bilateral salpingectomy: Status: Acute Assessment and Plan: 1. Consent form reviewed and signed for laparoscopic bilateral salpingectomy. 2. Prepare patient for surgery
--- NOTE | 2024-06-16 21:52 | P.PCN_ITS ---
Procedure Note Time Seen by Provider: 23:21 Date Seen: 06/16/24 Date of procedure: 06/16/24 Will [facility] bill your pro fee for this procedure?: Yes Procedure: Preoperative diagnosis: 38-year-old 5 para 3013 -left fallopian tube ectopic -undesired fertility. Postoperative diagnosis: Same. Procedure: Laparoscopic bilateral salpingectomy Anesthesia: General endotracheal Surgeon: Haley Castillo MD Gill Net Stringer: N/A EBL: 8 mL Urine output: 400 mL clear urine IVF: 1200 ml Specimen: Right and left fallopian tubes to pathology. Findings: On exam under anesthesia: The uterus was retroverted, less than 10 week size, mobile, without masses or nodularity palpable. Adnexa were without mass or fullness bilaterally. The uterus sounded to 10 cm. On laparoscopy: The left fallopian tube had approximately a 2 cm ectopic approximately 2 cm from the cornua. Otherwise the fallopian tube was normal in appearance. The right fallopian tube was normal in appearance. Both ovaries were normal in appearance and uterus appear normal. Procedure: The Patient was taken to the operating room where general anesthetic was found to be adequate. She was placed in the dorsal lithotomy position and an exam under anesthesia was performed with findings stated above. She was then prepped and draped in a normal sterile manner. A Juares catheter was then placed. A bivalve speculum was then placed in the vaginal canal to visualize the cervix. The anterior lip of the cervix was grasped with an a long Allis clamp. The cervix was dilated to Hegar 6. Uterus was sounded to 10 cm. A colic uterine manipulator was then placed. Attention was then turned to performing the laparoscopic portion of the procedure. All incisions were injected with 0.5% Marcaine prior to incision. A vertical 5 mm infraumbilical, incision, was made and a 5 mm trocar placed under direct visualization with the laparoscope. The abdomen was then insufflated with carbon dioxide gas to a pressure of 15 mm of mercury. To bilateral lower quadrant trocars were then placed under direct visualization. Both were placed approximately 3-4 finger breaths medial to the ischial crests. The right trocar was 5 mm the left trocar was 11 mm. A diagnostic laparoscopy was then performed with findings stated above. The left fallopian tube was grasped with a sliding grasper. The left fallopian tube was removed from the broad ligament using the PowerSeal dissecting forceps starting at the fimbriated end of the tube. Sequential pedicles were then formed to the level of the cornua. The tube was then removed at the cornua and removed from the abdomen through the 11 mm port. The right fallopian tube was removed in a similar manner. Excellent hemostasis was noted of all pedicles. The fascia was reapproximated in the 11 mm port using the Luisito-Randall fascial closure device. The trocars were then removed under direct visualization. The CO2 gas was allowed to escape the infraumbilical port prior to its removal. All incisions were reapproximated using 4-0 Monocryl in a running subcuticular manner. Exofin skin adhesive was applied to all the incisions. The uterine manipulator and Juares catheter were removed. The patient tolerated this procedure well. Sponge, lap and instrument counts were correct x2 at the end of the procedure and the patient was taken to the recovery area in stable condition. The patient received 2 g of IV Ancef prior to the procedure.
[2024-06-16] MEDS: LACTATED RINGERS 1000 ML 1,000 ML 100 ML IV ×2 (22:28→23:18)
--- OUTSIDE RECORDS SUMMARY | 2024-06-16 22:31 | XMS_ITS | Encounter Summary ---
Author Organization [facility] Address [address] [place] [address] Care Team Providers Care Tin Assorter Name Role Phone Brynn Levine APRN, CNM Primary Care Provider + Reason for Referral * Diagnostic Procedures (Urgent) - Authorized Specialty Diagnoses / Procedures Referred By Michael gonzalez Referred To Contact Diagnoses Positive urine test Procedures REFERRAL FOR OB ULTRASOUND REFERRAL FOR OB ULTRASOUND Chastity Welch APRN, CNP [address] [place] [id number] [facility] [address] [place] [phone] Referral ID Status Reason Start Date Expiration Date Visits Requested Visits Authorized [id number] Authorized Service Not Available at Clinic 06/05/2024 06/05/2025 1 1 Reason for Visit * Reason Comments Test Encounter Details Date Type Department Care Team ([facility] st Contact Info) Description 06/05/2024 3:00 PM PDT Office Visit [facility] [address] [place] [phone] Chastity Welch APRN, CNP [address] [place] [id number] Positive urine test (Primary Dx) Social History [...] of regular OB care Provided map to [facility]. Follow up: Dating ultrasound scheduled OBO scheduled for Pt Advocate appt scheduled Pre- Vitamins provided Appointments for the next 13 months 06/28/2024 9:00 AM SLIDING FEE APPLICATION [facility] PATIENT ADVOCATE DENTAL 40 min Patient encouraged to follow up sooner if necessary. Patient verbalized understanding and agrees tothe plan. Asia Stout RN * Chastity Welch, WIRE STRANDER,CONVENTIONAL MORTGAGE UNDERWRITER - 06/05/2024 3:02 PM CDT UPT VISIT Survey Interviewer: n/a Subjective: Maryam Hu is a 38 [...] Description 06/26/2024 8:00 AM PDT Telemedicine Visit [facility] [address] [phone] Brynn Levine APRN,THONY [address] [phone] 07/03/2024 11:00 AM PDT Interim Notes [facility] [address] [place] [phone] Scheduled Orders Name Type Priority Associated Diagnoses [...] or approved by the FDA or the supervisor typesetting of the assay. Blood Blood / Unknown 06/07/2024 8 :15 AM CDT 06/08/2024 1:48 AM CDT Chastity Welch APRN,CONVENTIONAL MORTGAGE UNDERWRITER LAB - B LOOD DRAW Performing Organization Address [facility]/ZIP Co de Phone Number [facility] [place] [address] [place] [address] [facility] [place] [address] [phone] * ABO GROUP & RH TYPE (06/05/2024 3:34 PM CDT) ABO GROUP B [facility] [place] [place] RH TYPE RH(D) POSITIVE [facility] COMMENT [facility] Blood Blood / Unknown 06/05/2024 3 :34 PM CDT 06/06/2024 3:59 AM CDT Narrative [facility] [place] [place] - 06/06/2024 8:24 AM CDT For additional information, please refer to http://education.Clay.io.UniServity/faq/ART646 (This link is being provided for informational/ educational purposes only.) Chastity Welch APRN,CONVENTIONAL MORTGAGE UNDERWRITER LAB - B LOOD DRAW [facility] [place] [address] [place] [address] [facility] [place] [address] [place] [phone] * (ABNORMAL) GONADOTROPIN CHORIONIC QUANTITATIVE (06/05/2024 3:34 PM CDT) [facility] HCG, TOTAL, QN 1,840(H) mIU/mL [facility] Comment: Reference Range Non or premenopausal ?<5 Postmenopausal ? <10 Values from different assay methods may vary. The use of this assay to monitor or to diagnose patients with cancer or any condition unrelated to has not been cleared or approved by the FDA or the supervisor typesetting of the assay. Blood Blood / Unknown 06/05/2024 3 :34 PM CDT 06/06/2024 1:34 AM CDT Chastity Welch WIRE STRANDER,CONVENTIONAL MORTGAGE UNDERWRITER LAB - B LOOD DRAW [facility] [address] [place] [address] [facility] [address] [place] [phone] * (ABNORMAL) BLOOD COUNT COMPLETE AUTO&AUTO DIFRNTL WBC (06/05/2024 3:34 PM CDT) [facility] WHITE BLOOD CELL COUNT 5.0 3.8 - 10.8 Thousand/ uL [facility] [employer] [place] RED BLOOD CELL COUNT 4.09 3.80 - 5.10 Million/u L [facility] [employer] [place] HEMOGLOBIN 12.4 11.7 - 15.5 g/dL [facility] [place] HEMATOCRIT 36.8 35.0 - 45.0 % [facility] [place] MCV 90.0 80.0 - 100.0 fL [facility] [place] MCH 30.3 27.0 - 33.0 pg [facility] [employer] [place] MCHC 33.7 32.0 - 36.0 g/dL [facility] [place] RDW 13.1 11.0 - 15.0 % [facility] [place] PLATELET COUNT 260 140 - 400 Thousand/ uL [facility] [employer] [place] MPV 10.9 7.5 - 12.5 fL [facility] [employer] [place] ABSOLUTE NEUTROPHILS 3,840 1,500 - 7,800 cells/uL [...] CDT 06/06/2024 1:32 AM CDT Chastity Welch WIRE STRANDER,CONVENTIONAL MORTGAGE UNDERWRITER LAB - B LOOD DRAW [facility] [place] [address] [place] [address] [facility] [address] [place] [address] * (ABNORMAL) URINE POCT (06/05/2024 3:10 PM CDT) URINE HCG POS(A) NEG [facility] [place] PO[facility] INTERNAL QC [place] [facility] [place] [facility] Urine Urine specimen / Unknown 06/05/2024 3:10 PM CDT Chastity Welch APRN,HAEYS LAB - N O BLOOD DRAW Performing Organization Address City/[facility]/ZIP Co de Phone Number [facility] [place] [facility] [address] [phone], documented in this encounter Visit Diagnoses Diagnosis Positive urine test- Primary examination or test, positive result documented in this encounter Additional Health Concerns Assessment Noted Time PHQ-9 Depression Total Score: 3 06/05/20 24 2:00 PM PDT documented as of this encounter Care Teams Tin Assorter Relationship Specialty Start Date End Date Brynn Levine APRN,THONY [address] [place] [phone] PCP - General Certified Detention Deputy, Certified Nurse 04/16/22 documented as of this encounter
--- OUTSIDE RECORDS SUMMARY | 2024-06-16 22:31 | XMS_ITS | Clinical Summary ---
Author Organization [facility] Address [address] [place] [address] Care Team Providers Care Generation Technologist Name Role Phone Brynn Levine APRN, CNM [...] 1:00 PM PDT OB Initial Visit (Nurse) [facility] [address] [place] [phone] Brynn Levine APRN, CNM Miranda, Hylenne, RN Encounter for supervision of other normal , first trimester (Primary Dx); Vaginal bleeding affecting early 06/13/2024 Travel 06/07/2024 Travel 06/05/2024 3:00 PM PDT Office Visit [facility] [address] [place] [phone] Chastity Welch, FOOD DEMONSTRATOR,UTILIZATION MANAGEMENT RN Positive urine test (Primary Dx) 06/05/2024 Travel [...] Description 06/26/2024 8:00 AM PDT Telemedicine Visit [facility] [address] [place] [phone] Brynn Levine APRN,THONY [address] [phone] 07/03/2024 11:00 AM PDT Interim Notes [facility] [address] [place] [address] Health Maintenance Due Date Last Done Comments HPV Screening 1983 Imm-Hepatitis B (1 of 3 - 19+ 3-dose series) 2002 Diabetes Screening 04/19/2023 04/19/2022 [id number] ( season) 2023 Imm-Influenza (#1) 2024 09/22/2022 [...] is included. HCG, TOTAL, QN 8,177(H) mIU/mL [facility] [place] Comment: Reference Range Non or premenopausal ?<5 Postmenopausal ? <10 Values from different assay methods may vary. The use of this assay to monitor or to diagnose patients with cancer or any condition unrelated to has not been cleared or approved by the FDA or the distribution dispatcher of the assay. Blood Blood / Unknown 06/15/2024 8 :34 AM CDT 06/16/2024 2:52 AM CDT Brynn Levine APRN, CNM LAB - BLOOD DRAW [facility] [place] [address] [facility] [place] [address] [facility] [address] [place] [address] * ABO GROUP & RH TYPE (06/13/2024 [...] CDT For additional information, please refer to http://education.MysteryD.BevyUp/faq/RDR094 (This link is being provided for informational/ educational purposes only.) Brynn Levine APRN, CNM LAB - BLOOD DRAW [facility] [place] [address] [place] [address] [facility] [place] [address] [place] [address] * BLOOD COUNT COMPLETE AUTO&AUTO DIFRNTL WBC [...] 10.2 7.5 - 12.5 fL [facility] [place] ABSOLUTE NEUTROPHILS 4,309 1,500 - 7,800 cells/uL [facility] [place] ABSOLUTE LYMPHOCYTES 870 850 - 3,900 cells/uL [facility] [place] [place] ABSOLUTE MONOCYTES 522 200 - 950 cells/uL [facility] [place] ABSOLUTE EOSINOPHILS 81 15 - 500 cells/uL [facility] ABSOLUTE BASOPHILS 17 0 - 200 cells/uL [facility] NEUTROPHILS 74.3 % [facility] [place] LYMPHOCYTES 15.0 % [facility] [...] DRAW [facility] [place] [place] [address] [place] [address] [facility] [address] [place] [address] * SURESWAB, CT/NG, T VAGINALIS (06/13/2024 1:52 PM CDT) CHLAMYDIA TRACHOMATIS RNA, TMA NOT DETECTED NOT DETECTED [facility] [employer] [facility] NEISSERIA GONORRHOEAE RNA, TMA NOT DETECTED NOT DETECTED [facility] [employer] [facility] COMMENT [facility] [employer] [facility] SURESWAB(R) TRICHOMONAS VAGINALIS RNA, QL TMA NOT DETECTED NOT DETECTED [facility] [employer] [facility] Comment: For additional information, please refer to http://Absio.Palm Commerce Information Technology/ faq/Trichomonastma (This link is being provided for informational/ educational purposes only.) Swab Vaginal structure / Unknown 06/13/2024 1:52 PM CDT 06/14/2024 10:47 AM CDT Narrative STACIE MELO - 06/15/2024 12:21 PM CDT The analytical performance characteristics of this assay, when used to test SurePath(TM) specimens have been determined by [employer]. The modifications have not been cleared or approved by the FDA. This assay has been validated pursuant to the CLIA regulations and is used for clinical purposes. For additional information, please refer to https://Absio.Palm Commerce Information Technology/faq/LMF073 (This link is being provided for information/ educational purposes only.) Brynn Levine APRN, CNM LAB - NO BLOOD D RAW STACIE MELO [address] [place] [address] [facility] [address] [place] [address] * URINE CULTURE W ID & SENS (06/13/2024 1:52 PM CDT) CULTURE, URINE, ROUTINE See Note [facility] Comment: ??CULTURE, URINE, ROUTINE ?Micro Number: ?[id number] ??Test Status: ? Final ??Specimen Source: ?? [...] NO BLOOD D RAW Performing Organization Address City/State/[facility] Co de Phone Number [facility] [place] [place] [address] [place] [address] [facility] [place] [address] [place] [address] * (ABNORMAL) URINALYSIS, COMPLETE W/REFLEX TO CULTURE [...] - NO BLOOD D RAW [facility] [place] [address] [place] [address] [facility] [place] [address] [place] [address] * RFLX - REFLEXIVE URINE CULTURE (06/13/2024 1:52 PM CDT) REFLEXIVE URINE CULTURE [facility] [place] Comment:CULTURE INDICATED - RESULTS TO FOLLOW 06/13/2024 1:52 PM CDT 06/14/2024 4:45 AM CDT Brynn Levine APRN,CNM LAB - NO BLOOD D RAW [facility] [address] [place] [address] [facility] [place] [address] [facility] [place] [address] * (ABNORMAL) URINE POCT (06/05/2024 3:10 PM CDT) Pathologist [facility] URINE HCG POS(A) NEG [facility] [place] POCT LAB INTERNAL QC [facility] [place] POCT LAB Urine Urine specimen / Unknown 06/05/2024 3:10 PM CDT Chastity Welch FOOD DEMONSTRATOR,UTILIZATION MANAGEMENT RN LAB - N O BLOOD DRAW [facility] [place] POCT LAB [address] [address], [place] * HEPATITIS C AB W/RFLX HCV RNA, QT, RT PCR (04/19/2022 4:37 PM CDT) Pathologist [facility] HEPATITIS C ANTIBODY NON-REACT RAYO NON-REACT RAYO [facility] [place] SIGNAL TO CUT-OFF 0.26 <1.00 [facility] [place] Comment: HCV antibody was non-reactive. There is no laboratory evidence of HCV infection. In most cases, no further action is required. However, if recent HCV exposure is suspected, a test for HCV RNA (test code 26203) is suggested. For additional information please refer to http://education.Palm Commerce Information Technology/faq/TRR23o6 (This link is being provided for informational/ educational purposes only.) Blood Blood / Unknown 04/19/2022 4 :37 PM CDT 04/20/2022 2:32 AM CDT Brynn Levine APRN, CNM LAB - BLOOD DRAW [facility] [place] [address] [place] [address] [facility] [place] [address] [place] [address] * HIV 1/2 AG & AB W/RFLX (4TH GEN) (04/19/2022 4:37 PM CDT) [facility] HIV AG/AB, 4TH GEN NON-REACT RAYO NON-REACT RAYO [facility] [place] [place] Comment: HIV-1 antigen and [...] ?? For additional information please refer to http://education.Electrochaea.BevyUp/faq/APJ044 (This link is being provided for informational/ educational purposes only.) The performance of this assay has not been clinically validated in patients less than 2 years old. Blood Blood / Unknown 04/19/2022 4 :37 PM CDT 04/20/2022 2:32 AM CDT Brynn Levine APRN, CNM LAB - BLOOD DRAW [facility] [place] [address] [place] [address] [facility] [place] [address] [place] [address] * (ABNORMAL) LIPIDS W RFLX TO DIRECT LDL (04/19/2022 4:37 PM CDT) CHOLESTEROL, TOTAL 161 <200 mg/dL [facility] [place] HDL CHOLESTEROL 48(L) > OR = 50 mg/dL [facility] [place] TRIGLYCERIDES 107 <150 mg/dL [facility] [place] LDL-CHOLESTEROL 93 mg/dL (calc) [facility] [place] Comment: Reference range: <100 Desirable range <100 mg/dL for primary prevention; ?? <70 mg/dL for patients with CHD or diabetic patients with > or = 2 CHD risk factors. LDL-C is now calculated using the Amna calculation, which is a validated novel method providing better accuracy than the Friedewald equation in the estimation of LDL-C. Enrique SS et al. RICKY. 2013;310(19): 8380-8113 (http://education.Paymetric/faq/LQZ643) CHOL/HDLC RATIO 3.4 <5.0 (calc) [facility] [place] NON-HDL CHOLESTEROL 113 <130 mg/dL (calc) [facility] [place] Comment: For patients with diabetes plus 1 major ASCVD risk factor, treating to a non-HDL-C goal of <100 mg/dL (LDL-C of <70 mg/dL) is considered a therapeutic option. Blood Blood / Unknown 04/19/2022 4 :37 PM CDT 04/20/2022 2:32 AM CDT Brynn Levine APRN, CNM LAB - BLOOD DRAW [facility] [place] [address] [facility] [place] [address] [facility] [place] [address] [facility] [place] [address] * (ABNORMAL) HEMOGLOBIN, GLYCOSYLATED (A1C) (04/19/2022 4:37 [...] Levine APRN, CNM LAB - BLOOD DRAW [facility] [place] [address] [place] [address] [facility] [place] [address] [place] [address] * THIN PREP IMAGE PAP + HPV RNA E6/E7 W/RFLX HPV 16, 18/45 (04/19/2022 4:34 PM CDT) CLINICAL INFORMATION [facility] Comment:Normal exam LMP [facility] [employer] [facility] Comment:[id number] PREV. PAP [facility] Comment:NONE GIVEN PREV. BX [facility] [employer] [facility] Comment:NONE GIVEN SOURCE [facility] Comment:Cervix, Endocervix STATEMENT OF ADEQUACY [facility] [employer] [facility] Comment: Satisfactory for evaluation. Endocervical/transformation zone component present. INTERPRETATION/RESU LT [facility] [employer] [facility] Comment:Negative for intraep ithelial lesion or malignancy. COMMENT [facility] [employer] [facility] Comment: This Pap test has been evaluated with computer assisted technology. CERTIFIED OPHTHALMIC SURGICAL ASSISTANT [facility] Comment: GXX, CT (ASCP) CT Screening location: [address] ??[address] COMMENT [facility] [employer] [facility] HPV MRNA E6/E7 Not Detected Not Detected [facility] [employer] [facility] Comment: Methodology: Commission Auditor-Mediated Amplification This assay detects E6/E7 viral messenger RNA (mRNA) from 14 high-risk HPV types (16,18,31,33,35,39,45,51,52,56,58,59,66,68). The analytical performance characteristics of this assay have been determined by [employer]. The modifications have not been cleared or approved by the FDA. This assay has been validated pursuant to the CLIA regulations and is used for clinical purposes. For additional information, please refer to http://education.Palm Commerce Information Technology/faq/DNL265l8 (This link if provided for information/ educational purposes only.) REPORT STATUS CANCELED [facility] Comment:Result canceled by t he ancillary. GENERAL CATEGORIZATION CANCELED [facility] Comment:Result canceled by t he ancillary. INFECTION CANCELED [facility] Comment:Result canceled by t he ancillary. REVIEW CERTIFIED OPHTHALMIC SURGICAL ASSISTANT CANCELED [facility] Comment:Result canceled by t he ancillary. PATHOLOGIST CANCELED [facility] Comment:Result canceled by t he ancillary. Swab Cervix uteri structure / Unknown 04/19/2022 4:34 PM CDT 04/20/2022 3:25 AM CDT Narrative [facility] - 04/21/2022 1:22 AM CDT EXPLANATORY NOTE: [...] CNM LAB - NO BLOOD D RAW [facility] [address] [place] [address] [facility] - [facility] [address] [place] [address] from Last 3 Months or Most Recently Relevant to Health Maintenance Care Teams Generation Technologist Relationship Specialty Start Date End Date Brynn Levine APRN, CNM [address] [place] [phone] PCP - General Fire Chief Deputy, Certified Nurse 04/16/22
--- OUTSIDE RECORDS SUMMARY | 2024-06-16 22:31 | XMS_ITS | Encounter Summary ---
Author Organization [facility] Address [address] [place] [address] Care Team Providers Care Restorative Rehab Aide Name Role Phone Brynn Levine APRN, CNM [...] Description 06/26/2024 8:00 AM PDT Telemedicine Visit [facility] [address] [place] [phone] Brynn Levine APRN, CNM [address] [place] [phone] 07/03/2024 11:00 AM PDT Interim Notes [facility] [address] [place] [phone] documented as of this encounter Visit Diagnoses Not on filedocumented in this encounter Additional Health Concerns Assessment Noted Time PHQ-9 Depression Total Score: 3 06/05/20 24 2:00 PM PDT documented as of this encounter Care Teams Restorative Rehab Aide Relationship Specialty Start Date End Date Brynn Levine APRN, CNM [address] [place] [phone] PCP - General Claims Processor, Certified Nurse 04/16/22 documented as of this encounter
--- OUTSIDE RECORDS SUMMARY | 2024-06-16 22:31 | XMS_ITS | Encounter Summary ---
Author Organization [facility] Address [address] [place] [address] Care Team Providers Care Clinical Rehab Specialist Name Role Phone Brynn Levine APRN, CNM [...] Description 06/26/2024 8:00 AM PDT Telemedicine Visit [facility] [address] [place] [phone] Brynn Levine APRN, CNM [address] [place] [phone] 07/03/2024 11:00 AM PDT Interim Notes [facility] [address] [place] [phone] documented as of this encounter Visit Diagnoses Not on filedocumented in this encounter Additional Health Concerns Assessment Noted Time PHQ-9 Depression Total Score: 3 06/05/20 24 2:00 PM PDT documented as of this encounter Care Teams Clinical Rehab Specialist Relationship Specialty Start Date End Date Brynn Levine APRN, CNM [address] [place] [phone] PCP - General Marine Biologist, Certified Nurse 04/16/22 documented as of this encounter
--- OUTSIDE RECORDS SUMMARY | 2024-06-16 22:31 | XMS_ITS | Encounter Summary ---
Author Organization [facility] Address [address] [place] [address] Care Team Providers Care Director Of Maintenance Name Role Phone Brynn Levine APRN, CNM [...] Description 06/26/2024 8:00 AM PDT Telemedicine Visit [facility] [address] [place] [phone] Brynn Levine APRN, CNM [address] [place] [phone] 07/03/2024 11:00 AM PDT Interim Notes [facility] [address] [place] [phone] documented as of this encounter Visit Diagnoses Not on filedocumented in this encounter Additional Health Concerns Assessment Noted Time PHQ-9 Depression Total Score: 4 06/13/20 24 1:00 PM PDT documented as of this encounter Care Teams Director Of Maintenance Relationship Specialty Start Date End Date Brynn Levine APRN, CNM [address] [place] [phone] PCP - General Interior Assemblies Installer, Certified Nurse 04/16/22 documented as of this encounter
--- OUTSIDE RECORDS SUMMARY | 2024-06-16 22:31 | XMS_ITS | Encounter Summary ---
Author Organization [facility] Address [address] [place] [address] Care Team Providers Care Wire Wheeler Name Role Phone Brynn Levine APRN, CNM Primary Care Provider + Reason for Visit * Reason Comments Return OB Visit Encounter Details Date Type Department Care Team (Latest Contact Info) Description 06/13/2024 1:00 PM PDT OB Initial Visit (Nurse) [facility] [address] [phone] Brynn Levine APRN, CNM [address] [phone] Harjit Merritt RN [address] [address] Encounter for supervision of other [...] at each stage of Safe OTC medications [place] screening Classes ([email or web address]) Map of [facility] and encouraged her to take a tour to be familiar with the hospital. Registration form completed and faxed to [facility] at [phone] and copy sent to [facility]. [facility] Everywhere ID and letter generated to be sent to [facility]. Consent for information given to [employer] was obtained Advised to follow up per [...] term vaginal deliveries Social history: -moved to [place] January,, lived in [place] for 15 years prior -currently lives with [...] Description 06/26/2024 8:00 AM PDT Telemedicine Visit [facility] [address] [place] [phone] Brynn Levine APRN, CNM [address] [phone] 07/03/2024 11:00 AM PDT Interim Notes [facility] [address] [place] [phone] documented as of this encounter Procedures [...] AM CDT) HCG, TOTAL, QN 8,177(H) mIU/mL [facility] Comment: Reference Range Non or premenopausal ?<5 Postmenopausal ? <10 Values from different assay methods may vary. The use of this assay to monitor or to diagnose patients with cancer or any condition unrelated to has not been cleared or approved by the FDA or the rodeo rider of the assay. Blood Blood / Unknown 06/15/2024 8 :34 AM CDT 06/16/2024 2:52 AM CDT Brynn Levine APRN,THONY LAB - BLOOD DRAW [facility] [address] [place] [address] [facility] [place] [address] [place] [address] * (ABNORMAL) GONADOTROPIN CHORIONIC QUANTITATIVE (06/13/2024 1:53 PM CDT) [facility] HCG, TOTAL, QN 6,654(H) mIU/mL [facility] [place] Comment: Reference Range Non or premenopausal ?<5 Postmenopausal ? <10 Values from different assay methods may vary. The use of this assay to monitor or to diagnose patients with cancer or any condition unrelated to has not been cleared or approved by the FDA or the rodeo rider of the assay. Blood Blood / Unknown 06/13/2024 1 :53 PM CDT 06/14/2024 1:23 AM CDT Brynn Levine APRN,THONY LAB - BLOOD DRAW [facility] [address] [address] [facility] [place] [address] [address] * BLOOD COUNT COMPLETE AUTO&AUTO DIFRNTL WBC (06/13/2024 1:53 PM CDT) [facility] WHITE BLOOD CELL COUNT 5.8 3.8 - 10.8 Thousand/ uL [facility] [place] RED BLOOD CELL COUNT 4.28 3.80 - 5.10 Million/u L [facility] [place] HEMOGLOBIN 12.6 11.7 - 15.5 g/dL [facility] [place] [place] HEMATOCRIT 39.0 35.0 - 45.0 % [facility] MCV 91.1 80.0 - 100.0 fL [facility] [place] MCH 29.4 27.0 - 33.0 pg [facility] [place] [place] MCHC 32.3 32.0 - 36.0 g/dL [facility] [place] [place] RDW 13.0 11.0 - 15.0 % [facility] [place] PLATELET COUNT 286 140 - 400 Thousand/ uL [facility] [place] MPV 10.2 7.5 - 12.5 fL [facility] [place] ABSOLUTE NEUTROPHILS 4,309 1,500 - 7,800 cells/uL [facility] [place] ABSOLUTE LYMPHOCYTES 870 850 - 3,900 cells/uL [facility] [place] ABSOLUTE MONOCYTES 522 200 - 950 cells/uL [facility] [place] ABSOLUTE EOSINOPHILS 81 15 - 500 cells/uL [facility] [place] ABSOLUTE BASOPHILS 17 0 - 200 cells/uL [facility] [place] NEUTROPHILS 74.3 % [facility] [place] LYMPHOCYTES 15.0 % [facility] [place] MONOCYTES 9.0 % [facility] [place] EOSINOPHILS 1.4 % [facility] [place] BASOPHILS 0.3 % [facility] [place] ABSOLUTE BAND NEUTROPHILS CANCELED [facility] Comment:Result canceled by t he ancillary. ABSOLUTE METAMYELOCYTES CANCELED [facility] [place] Comment:Result canceled by t he ancillary. ABSOLUTE MYELOCYTES CANCELED [facility] [place] Comment:Result canceled by t he ancillary. ABSOLUTE PROMYELOCYTES CANCELED [facility] [place] [place] Comment:Result canceled by t he ancillary. ABSOLUTE BLASTS CANCELED [facility] [place] Comment:Result canceled by t he ancillary. ABSOLUTE NUCLEATED RBC CANCELED [facility] Comment:Result canceled by t he ancillary. [...] LAB - BLOOD DRAW Performing Organization Address [facility] Co de Phone Number [facility] [place] [address] [place] [address] [facility] [place] [place] [address] [place] [address] * ABO GROUP & RH TYPE (06/13/2024 1:53 PM CDT) ABO GROUP B [facility] [place] RH TYPE RH(D) POSITIVE [facility] [place] [place] COMMENT [facility] [place] Blood Blood / Unknown 06/13/2024 1 :53 PM CDT 06/14/2024 3:45 AM CDT Narrative [facility] [place] [place] - 06/14/2024 9:30 AM CDT For additional information, please refer to http://[email or web address].Badongo.com/faq/PVC568 (This link is being provided for informational/ educational purposes only.) Brynn Levine APRN, CNM LAB - BLOOD DRAW Performing Organization Address [facility] Co de Phone Number [facility] [address] [place] [address] [facility] [address] [place] [address] * URINE CULTURE W ID & SENS (06/13/2024 1:52 PM CDT) CULTURE, URINE, ROUTINE See Note [facility] [place] Comment: ??CULTURE, URINE, ROUTINE ?Micro Number: ?[id number] ??Test Status: ? Final ??Specimen Source: ?? [...] BLOOD D RAW [facility] [place] [address] [place] [address] [facility] [place] [address] [place] [address] * RFLX - REFLEXIVE URINE CULTURE (06/13/2024 1:52 PM CDT) REFLEXIVE URINE CULTURE [facility] [place] Comment:CULTURE INDICATED - RESULTS TO FOLLOW 06/13/2024 1:52 PM CDT 06/14/2024 4:45 AM CDT Brynn Levine APRN, CNM LAB - NO BLOOD D RAW [facility] [place] [address] [place] [address] [facility] [place] [address] [place] [address] * SURESWAB, CT/NG, T VAGINALIS (06/13/2024 1:52 PM CDT) CHLAMYDIA TRACHOMATIS RNA, TMA NOT DETECTED NOT DETECTED [facility] NEISSERIA GONORRHOEAE RNA, TMA NOT DETECTED NOT DETECTED [facility]text - [facility] COMMENT [facility] [place] SURESWAB(R) TRICHOMONAS VAGINALIS RNA, QL TMA NOT DETECTED NOT DETECTED [facility] [place] Comment: For additional information, please refer to http://Victrio.Tapestry/ faq/Trichomonastma (This link is being provided for informational/ educational purposes only.) Swab Vaginal structure / Unknown 06/13/2024 1:52 PM CDT 06/14/2024 10:47 AM CDT Narrative STACIE MELO - 06/15/2024 12:21 PM CDT The analytical performance characteristics of this assay, when used to test SurePath(TM) specimens have been determined by [employer] [facility]. The modifications have not been cleared or approved by the FDA. This assay has been validated pursuant to the CLIA regulations and is used for clinical purposes. For additional information, please refer to https://Victrio.Tapestry/faq/HFL824 (This link is being provided for information/ educational purposes only.) Brynn Levine APRN, CNM LAB - NO BLOOD D RAW STACIE MELO [address] [place] [address] [facility] [address] [place] [address] * (ABNORMAL) URINALYSIS, COMPLETE W/REFLEX TO CULTURE [...] [facility] [place] [address] [place] [address] [facility] [place] [place] [address] [place] [address] documented in this encounter Visit Diagnoses Diagnosis Encounter for supervision of other normal , first trimester- Primary Vaginal bleeding affecting early documented in this encounter Additional Health Concerns Assessment Noted Time PHQ-9 Depression Total Score: 4 06/13/20 24 1:00 PM PDT documented as of this encounter Care Teams Wire Wheeler Relationship Specialty Start Date End Date Brynn Levine APRN, CNM [address] [place] [phone] PCP - General Lead Tinner, Certified Nurse 04/16/22 documented as of this encounter
--- OUTSIDE RECORDS SUMMARY | 2024-06-16 22:31 | XMS_ITS | Encounter Summary ---
Author Organization [facility] Address [address] [place] [address] Care Team Providers Care Lead Level Designer Name Role Phone Brynn Levine APRN, CNM [...] Description 06/26/2024 8:00 AM PDT Telemedicine Visit [facility] [address] [place] [phone] Brynn Levine APRN, CNM [address] [place] [phone] 07/03/2024 11:00 AM PDT Interim Notes [facility] [address] [place] [phone] documented as of this encounter Visit Diagnoses Not on filedocumented in this encounter Additional Health Concerns Assessment Noted Time PHQ-9 Depression Total Score: 4 06/13/20 24 1:00 PM PDT documented as of this encounter Care Teams Lead Level Designer Relationship Specialty Start Date End Date Brynn Levine APRN, CNM [address] [place] [phone] PCP - General Vp Care Management, Certified Nurse 04/16/22 documented as of this encounter
[2024-06-16] MEDS: CEFAZOLIN 2 GM INJ IVP (22:46)
--- NOTE | 2024-06-16 22:49 | W.ANESCHARGE ---
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
[2024-06-16] MEDS: BUPIVACAINE 0.5% 30 ML INJECTION (23:00)
[2024-06-16] MEDS: KETOROLAC 30 MG/ML inj IVP (23:18)
[2024-06-16 23:35] VITALS: BP 118/62; PULSE 80; RESP 18; TEMP 36.4; O2SAT 100
[2024-06-16 23:40] VITALS: BP 115/66; PULSE 82; RESP 16; O2SAT 100
[2024-06-16 23:45] VITALS: BP 105/78; PULSE 82; RESP 16; O2SAT 100
[2024-06-16 23:50] VITALS: BP 115/69; PULSE 73; RESP 18; TEMP 36.9; O2SAT 98
[2024-06-16 23:55] VITALS: BP 121/86; PULSE 77; RESP 16; O2SAT 100
[2024-06-17] VITALS (14 sets, daily range): BP systolic 98–131; BP diastolic 62–82; PULSE 68–81; RESP 16–18; TEMP 36.4–36.8; O2SAT 95–100
[2024-06-17] MEDS: ACETAMINOPHEN 325 MG TABLET PO (00:30)
[2024-06-17] MEDS: OXYCODONE 5 MG TABLET PO ×2 (04:35→10:46)
--- NOTE | 2024-06-17 06:47 | PC.NURSE ---
End of shift note: Pt alert & oriented and able to make needs known. Pt has been using call light appropriately. She has been transferring/ambulating with SBA and has been continent of bladder. Urine noted to have light pink color with first void after surgery due to small amount of vaginal bleeding noted. Urine since been noted to be light ramon in color with no further bleeding noted. Pt tolerating food and po fluids. VSS and pt has been afebrile. 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 PRN Oxycodone given for c/o 5/10 R arm pain. IV to R AC SL per order due to pt tolerating po intake. has been present at bedside since pt brought up to med/surg for recovery. All questions/concerns of pt and answered by staff by using web knitter services. IS education provided with return demonstration completed with help of web knitter.
--- NOTE | 2024-06-17 15:01 | PC.NURSE ---
Discharge Summary: Patient pleasant and cooperative. Afebrile. Lap sites to abdomen C/D/I. Rating pain 2/10 and PRN Oxycodone given x1. Tolerating regular diet with no nausea. Up to bathroom with SBA and voiding without difficulty. Ipad bus dispatcher interstate used throughout shift for cares, medication administration and discharge instructions. Patient discharged home at 1048 with all personal belongings accompanied by spouse. Discharge instructions including diagnosis, mediations and follow up appointment discussed with patient and voiced understanding.
== END 2024-06-17 10:48 | disposition home or self-care (01) ==
LOC: ED 21:36 → MS OUT 22:29 → MEDSURG 23:26
PROVIDERS: Emergency Provider Emergency Medicine Emergency Medical Services; Visit Provider Obstetrics & Gynecology
PROC: (CPT 59150; principal; 2024-06-16 22:15)
DX: O00.102 Left tubal pregnancy without intrauterine pregnancy (principal); O46.8X1 Other antepartum hemorrhage, first trimester; R73.03 Prediabetes; Z30.2 Encounter for sterilization
CPT/HCPCS: 58661; 00840; 36415; 76817; 80048; 84702; 85025; 86850; 86860; 86870; 86880; 86900; 86901; 86905; 86906; 86970; 88302; 88305; 99140; 99284; 99285; A9270; J0330; J0665; J0690; J1100; J1885; J2250; J2405; J2704; J3010; J3490; J7120